=== PATIENT | male | born 1965 | race Caucasian/White ===

== ENCOUNTER → 2018-07-20 | Outpatient (CLI) | payer SELFPAY ==
[~2018-07-20] MED LIST: DIAZ5TAB4 PO; GLYB5TAB3 PO; HYDR-3622 PO; LEVO125T5 PO; METF500T17 PO; RANI150T23 PO
[2018-07-20 10:10] LABS: HCT (SEDRATE) 43.1 % (39.2-51.8)
[2018-07-20 10:11] LABS: BASOPHILS # (AUTO) 0.06 x10^3/uL (0-0.1); BASOPHILS % (AUTO) 1 % (0-1); EOSINOPHILS # (AUTO) 0.15 x10^3/uL (0-0.4); EOSINOPHILS % (AUTO) 3 % (1-7); LYMPHOCYTES # (AUTO) 1.78 x10^3/uL (1-3.4); LYMPHOCYTES % (AUTO) 33 % (22-44); MD NO; MEAN CORPUSCULAR HEMOGLOBIN 25.3 pg (27.5-34.5); MEAN CORPUSCULAR HGB CONC 33.5 g/dL (33.2-36.2); MEAN CORPUSCULAR VOLUME 75.6 fL (81-97); MEAN PLATELET VOLUME 6.9 fL (7.4-10.4); MONOCYTES # (AUTO) 0.68 x10^3/uL (0.2-0.8); MONOCYTES % (AUTO) 13 % (2-9); NEUTROPHILS # (AUTO) 2.79 x10^3/uL (1.8-6.8); NEUTROPHILS % (AUTO) 51 % (42-75); PLATELET COUNT 253 x10^3/uL (130-400); RED BLOOD COUNT 5.63 x10^6/uL (4.38-5.82); RED CELL DISTRIBUTION WIDTH 16.1 % (9.4-14.8)
[2018-07-20 10:13] LABS: MICROSCOPIC AUTO
[2018-07-20 10:19] LABS: INTERNATIONAL NORMALIZED RATIO 1.06 (0.93-1.1); PROTHROMBIN TIME 10.9 Seconds (9.6-11.5)
[2018-07-20 10:21] LABS: ALANINE AMINOTRANSFERASE 21 U/L (12-78); ALBUMIN 3.7 g/dL (3.4-5.0); ANION GAP 8 mmol/L (5-15); CALCIUM 9.1 mg/dL (8.5-10.1); CHLORIDE 101 mmol/L (98-107); CREATININE 0.78 mg/dL (0.7-1.3)
[2018-07-20 10:23] LABS: ALKALINE PHOSPHATASE 155 U/L (45-117); BILIRUBIN,TOTAL 0.4 mg/dL (0.2-1.0); TOTAL PROTEIN 8.3 g/dL (6.4-8.2)
== END | disposition home or self-care (01) ==
LOC: STAR 09:03
PROVIDERS: ATTEND Orthopaedic Surgery Orthopaedic Surgery of the Spine
DX: Z01.818 Encounter for other preprocedural examination (principal); M48.56XA Collapsed vertebra, not elsewhere classified, lumbar region, initial encounter for fracture
CPT/HCPCS: 36415; 71046; 80053; 81001; 85025; 85610; 85651; 85730; 93005

== ENCOUNTER 2018-08-19 09:31 | Day surgery (SDC) | payer MEDICAID ==
[~2018-08-19 09:31] MED LIST changes: +BUPIVACAINE/PF-EPI 0.5% 1:200K ONE
[2018-08-19] MEDS ORDERED: LACTATED RINGERS 1,000 ML IV SCH (09:54)
[2018-08-19] MEDS ORDERED: PLEASE ENTER HEIGHT AND WEIGHT MC SCH (10:00)
== END 2018-08-19 10:30 | disposition home or self-care (01) ==
LOC: OUT 09:31
PROVIDERS: ATTEND Orthopaedic Surgery Orthopaedic Surgery of the Spine
DX: Z02.9 Encounter for administrative examinations, unspecified (principal)

== ENCOUNTER 2018-08-26 08:06 | Day surgery (SDC) | payer MEDICAID ==
[~2018-08-26] VITALS: Ht 182.9 cm; Wt 119.0 kg
[~2018-08-26 08:06] MED LIST changes: -BUPIVACAINE/PF-EPI 0.5% 1:200K ONE
[2018-08-26] MEDS ORDERED: PROMETHAZINE 25 MG/ML, 1ML IV PRN (08:30)
[2018-08-26] MEDS ORDERED: HALOPERIDOL 5 MG/ML IV PRN (08:30)
[2018-08-26] MEDS ORDERED: hydrALAzine 20 MG/ML, 1ML IV PRN (08:30)
[2018-08-26] MEDS ORDERED: FENTANYL PF 100 MCG/2ML IV PRN (08:30)
[2018-08-26] MEDS ORDERED: PLEASE ENTER ALLERGIES MC SCH (08:30)
[2018-08-26] MEDS ORDERED: LABETALOL 5MG/ML, 20ML IV PRN (08:30)
[2018-08-26] MEDS ORDERED: MEPERIDINE/PF 25MG/0.5ML IVPush PRN (08:30)
[2018-08-26] MEDS ORDERED: DIPHENHYDRAMINE 50 MG/ML, 1ML IVPush PRN (08:30)
[2018-08-26] MEDS ORDERED: DIAZEPAM 5 MG/ML, 2ML IVPush PRN (08:30)
[2018-08-26] MEDS ORDERED: HYDROmorphone 2 MG/ML, 1ML IVPush PRN (08:30)
[2018-08-26] MEDS ORDERED: LACTATED RINGERS 1,000 ML IV SCH (08:36)
[2018-08-26 08:37] VITALS: BP 121/66
[2018-08-26] MEDS ORDERED: GABAPENTIN 300 MG CAPSULE PO ONE (09:00)
[2018-08-26] MEDS ORDERED: OXYcodone IR 5MG TABLET PO ONE (09:00)
[2018-08-26] MEDS ORDERED: ACETAMINOPHEN 500 MG TABLET PO ONE (09:00)
[2018-08-26] MEDS ORDERED: INSULIN SINGLE DOSE, ER SQ-INSULIN ONE (09:50)
[2018-08-26] MEDS ORDERED: INSULIN REGULAR 100 UNITS/ML, 3ML VIAL SQ-INSULIN SCH (10:00)
[2018-08-26] MEDS ORDERED: MIDAZOLAM 1 MG/ML, 2ML ONE (10:12)
[2018-08-26] MEDS ORDERED: FENTANYL PF 250 MCG/5ML ONE (10:13)
[2018-08-26] MEDS ORDERED: BUPIVACAINE/PF-EPI 0.5% 1:200K ONE (10:24)
[2018-08-26] MEDS ORDERED: SUCCINYLCHOLINE 20 MG/ML, 10ML ONE (11:08)
[2018-08-26] MEDS ORDERED: CEFAZOLIN 1,000 MG ONE (11:08)
[2018-08-26] MEDS ORDERED: ROCURONIUM 10MG/ML,5ML ONE (11:08)
[2018-08-26] MEDS ORDERED: NEOSTIGMINE 1 MG/ML, 10ML ONE (11:08)
[2018-08-26] MEDS ORDERED: PROPOFOL 10 MG/ML, 20ML ONE (11:08)
[2018-08-26] MEDS ORDERED: GLYCOPYRROLATE 0.2MG/1ML, 5ML ONE (11:08)
[2018-08-26] MEDS ORDERED: ONDANSETRON 2MG/ML, 2ML ONE (11:08)
[2018-08-26] MEDS ORDERED: DEXAMETHASONE 4 MG/ML, 1ML ONE (11:08)
== END 2018-08-26 16:10 | disposition home or self-care (01) ==
LOC: OUT 08:06
PROVIDERS: ATTEND Orthopaedic Surgery Orthopaedic Surgery of the Spine
DX: S32.018A Other fracture of first lumbar vertebra, initial encounter for closed fracture (principal); M54.5 Low back pain; E11.9 Type 2 diabetes mellitus without complications; E03.9 Hypothyroidism, unspecified; Z87.01 Personal history of pneumonia (recurrent); Z98.890 Other specified postprocedural states; Z79.84 Long term (current) use of oral hypoglycemic drugs; Z79.899 Other long term (current) drug therapy; Z79.4 Long term (current) use of insulin; V69.88XA Occupant (driver) (passenger) of heavy transport vehicle injured in other specified transport accidents, initial encounter; Y93.89 Activity, other specified; Y92.488 Other paved roadways as the place of occurrence of the external cause; Y99.8 Other external cause status
CPT/HCPCS: 22514; 72100; 82962; 88307; 88311; C1713; J0330; J0690; J1100; J2250; J2405; J2704; J2710; J3010; J3490; J7120

== ENCOUNTER 2018-09-27 09:43 | Inpatient (IN) | payer MEDICAID ==
[~2018-09-27] VITALS: Ht 182.9 cm; Wt 130.6 kg
--- NOTE | 2018-09-27 10:28 | NUR ---
PATIENT PRESENTS TO ED TODAY FOR INCREASED GENERALIZED WEAKNESS, LOW BACK PAIN, AND MULTIPLE FALLS, NO LOC/HEAD OR NECK PAIN, PATIENT HAD L-1 SPINAL SURGERY ON 08/26/18, A+OX4. PATIENT REPORTS BILAT LOWER EXT NUMBNESS. LEAD PRESSMAN ROTO GRAVURE PRINTING ON PATIENT. FAMILY AT BEDSIDE, IV ESTABLISHED, XRAY AND LABS COMPLETED, AWAITING RESULTS. PATIENT TO BE ADMIT PER ERP. CALL LIGHT WITHIN REACH.
[2018-09-27] MEDS ORDERED: SODIUM CHLORIDE FLUSH 10ML SYR IVF ONE (10:30)
[2018-09-27] MEDS ORDERED: GABA-827 PO (10:38)
[2018-09-27] MEDS ORDERED: FLUO20CA8 PO (10:40)
[2018-09-27] MEDS ORDERED: BACL20TA PO (10:41)
[2018-09-27 11:07] LABS: INTERNATIONAL NORMALIZED RATIO 1.1 (0.93-1.1); MEAN CORPUSCULAR HEMOGLOBIN 25.4 pg (27.5-34.5); MEAN CORPUSCULAR HGB CONC 33.4 g/dL (33.2-36.2); MEAN CORPUSCULAR VOLUME 76.1 fL (81-97); MEAN PLATELET VOLUME 7.1 fL (7.4-10.4); PLATELET COUNT 220 x10^3/uL (130-400); PROTHROMBIN TIME 11.6 Seconds (9.6-11.5); RED BLOOD COUNT 5.39 x10^6/uL (4.38-5.82); RED CELL DISTRIBUTION WIDTH 16.3 % (9.4-14.8)
[2018-09-27 11:09] LABS: ALBUMIN 3.5 g/dL (3.4-5.0); ANION GAP 5 mmol/L (5-15); CALCIUM 9.3 mg/dL (8.5-10.1); CHLORIDE 100 mmol/L (98-107)
[2018-09-27 11:13] LABS: ALANINE AMINOTRANSFERASE 14 U/L (12-78); ALKALINE PHOSPHATASE 137 U/L (45-117); BILIRUBIN,TOTAL 0.5 mg/dL (0.2-1.0); CREATININE 0.76 mg/dL (0.7-1.3); TOTAL PROTEIN 8.2 g/dL (6.4-8.2)
[2018-09-27 11:29] LABS: MD YES
[2018-09-27 11:31] LABS: ANISOCYTOSIS 1+; BASOS#(MANUAL) 0.06 x10^3/uL (0-0.1); BASOS% (MANUAL) 1 % (0-1); EOS#(MANUAL) 0.06 x10^3/uL (0.0-0.4); EOS% (MANUAL) 1 % (1-7); LYMPH#(MANUAL) 1.29 x10^3/uL (1-3.4); LYMPHS% (MANUAL) 23 % (22-44); MONOS#(MANUAL) 0.34 x10^3/uL (0.3-2.7); MONOS% (MANUAL) 6 % (2-9); SEG#(MANUAL) 3.86 x10^3/uL (1.8-6.8); SEGS% (MANUAL) 69 % (42-75)
[2018-09-27 11:32] LABS: <PLATELET ESTIMATE> ADEQUATE; <PLT MORPHOLOGY> NORMAL PLT MORPH
--- NOTE | 2018-09-27 11:41 | NUR ---
PATIENT SITTING COMFORTABLY ON GURNEY, WATCHING TV, VS UPDATED IN CHART. A+OX4. PATIENT'S RESULTS BACK, CHART UP FOR RECHECK, AWAITING ADMIT ORDER. PATIENT/FAMILY UPDATED ON POC. NO ADDITIONAL NEEDS AT THIS TIME.
[2018-09-27] MEDS ORDERED: ONDANSETRON ODT 4 MG PO PRN (13:30)
[2018-09-27] MEDS ORDERED: ACETAMINOPHEN 325 MG TABLET PO PRN (13:30)
[2018-09-27] MEDS ORDERED: HYDROcodone/APAP 10/325 MG TABLET PO PRN (13:30)
[2018-09-27] MEDS ORDERED: HYDROcodone/APAP 10/325 MG TABLET ONE (13:53)
[2018-09-27] MEDS: SODIUM CHLORIDE 0.9% 1,000 ML IV SCH ×2 (13:56→23:37)
--- NOTE | 2018-09-27 13:58 | NUR ---
VS UPDATED IN CHART, PATIENT HAVING 7/10 BACK PAIN, NORCO AND IVF ADMINISTERED PER MAR, UA COLLECTED AND SENT TO LAB. NO CONCENTRATED SWEETS DIET TRAY ORDERED PER MD ORDER PER PATIENT REQUEST. PATIENT TO MRI AT THIS TIME VIA [facility].
[2018-09-27 14:02] LABS: HEMOGLOBIN A1C 11.8 % (4.2-6.3)
[2018-09-27 14:15] LABS: CHLORIDE,URINE RANDOM 52 mmol/L; POTASSIUM,URINE RANDOM 30 mmol/L; SODIUM,URINE RANDOM 45 mmol/L
[2018-09-27 14:26] LABS: CULTURE INDICATED? NO; MICROSCOPIC NOT IND
[2018-09-27] MEDS ORDERED: GADOBUTROL 10 MMOL/10 ML PFS ONE (14:28)
[2018-09-27 14:34] LABS: OSMOLALITY,URINE 298 mOsm/kg (500-850)
[2018-09-27] MEDS ORDERED: DIPHENHYDRAMINE 50 MG/ML, 1ML ONE (14:48)
--- NOTE | 2018-09-27 14:55 | NUR ---
PER MRI, PATIENT HAVING HIVED POST IV CONTRAST, PATIENT MEDICATED WITH BENADRYL IN MRI. NADN, PATIENT IN CT AT THIS TIME.
--- NOTE | 2018-09-27 14:56 | NUR ---
ERP AWARE OF REACTION TO IV CONTRAST.
--- NOTE | 2018-09-27 14:57 | NUR ---
CALLED BY JUAN HAMMER TO EXAMINE PATIENT PRIOR TO CT SCAN WITH CONTRAST. PT WITH HIVES ON FACE AND NECK. NO DIFFICULTY BREATHING OR SPEAKING. DENIES ITCHING OR OTHER COMPLAINTS. CALLED MANAN BAIN, RECEIVED ORDERS FOR BENADRYL 25MG IV. MEDICATED ORDERED. CALLED ED AND INFORMED MIGUEL NETTLES THAT BENADRYL WAS GIVEN. PROCEEDED WITH CT PER JOSE CRUZ ORDER. PT BEING TRANSFERRED BACK TO CT. HIVES ON FACE AND NECK BEGINNING TO FADE. PT STATES HE FEELS GOOD.
[2018-09-27] MEDS ORDERED: DIPHENHYDRAMINE 50 MG/ML, 1ML IVPush ONE (15:00)
--- NOTE | 2018-09-27 15:10 | NUR ---
PATIENT BACK FROM CT, VS UPDATED IN CHART, PATIENT TRANSFERRED TO HOSPITAL BED, DIET TRAY PROVIDED. PATIENT SPEAKING FULL SENTENCES, NADN POST REACTION TO IV CONTRAST. PATIENT EATING LUNCH PROVIDED, SPOUSE AT BEDSIDE, NO ADDITIONAL NEEDS AT THIS TIME.
[2018-09-27] MEDS ORDERED: OMNIPAQUE 350 MG/ML, 100ML BOTTLE ONE (15:13)
[2018-09-27 15:58] LABS: ANION GAP 8 mmol/L (5-15); CHLORIDE 100 mmol/L (98-107); CREATININE 0.67 mg/dL (0.7-1.3)
--- NOTE | 2018-09-27 17:32 | NUR ---
REPORT TO MIGUEL LINARES.
[2018-09-27 18:09] VITALS: BP 131/71
[2018-09-27] MEDS: HYDROcodone/APAP 10/325 MG TABLET PO PRN (18:25)
[2018-09-27] MEDS: INSULIN LISPRO 100 UNITS/ML, PEN SQ-INSULIN SCH ×2 (18:25→21:44)
[2018-09-27 19:40] VITALS: BP 150/78
[2018-09-27] MEDS: GABAPENTIN 300 MG CAPSULE PO SCH (20:25)
[2018-09-27] MEDS: FAMOTIDINE 20 MG TABLET PO SCH (20:25)
[2018-09-27] MEDS: LIDODERM 5% PATCH TD PRN (21:43)
[2018-09-27] MEDS: INSULIN GLARGINE 100 UNITS/ML, PEN SQ-INSULIN SCH (21:44)
[2018-09-27] MEDS: KETOROLAC 30 MG/1 ML IVPush PRN (23:36)
[2018-09-28 04:00] VITALS: BP 108/71
[2018-09-28 05:19] LABS: BASOPHILS # (AUTO) 0.05 x10^3/uL (0-0.1); BASOPHILS % (AUTO) 1 % (0-1); EOSINOPHILS # (AUTO) 0.14 x10^3/uL (0-0.4); EOSINOPHILS % (AUTO) 3 % (1-7); LYMPHOCYTES # (AUTO) 1.56 x10^3/uL (1-3.4); LYMPHOCYTES % (AUTO) 33 % (22-44); MD NO; MEAN CORPUSCULAR HEMOGLOBIN 25.6 pg (27.5-34.5); MEAN CORPUSCULAR HGB CONC 33.4 g/dL (33.2-36.2); MEAN CORPUSCULAR VOLUME 76.8 fL (81-97); MEAN PLATELET VOLUME 6.9 fL (7.4-10.4); MONOCYTES # (AUTO) 0.66 x10^3/uL (0.2-0.8); MONOCYTES % (AUTO) 14 % (2-9); NEUTROPHILS # (AUTO) 2.33 x10^3/uL (1.8-6.8); NEUTROPHILS % (AUTO) 49 % (42-75); PLATELET COUNT 206 x10^3/uL (130-400); RED BLOOD COUNT 5.22 x10^6/uL (4.38-5.82)
[2018-09-28] MEDS: KETOROLAC 30 MG/1 ML IVPush PRN ×4 (05:25→23:28)
[2018-09-28] MEDS: HYDROcodone/APAP 10/325 MG TABLET PO PRN ×4 (05:25→23:28)
[2018-09-28 05:33] LABS: CHLORIDE 106 mmol/L (98-107)
[2018-09-28 05:43] LABS: ALANINE AMINOTRANSFERASE 13 U/L (12-78); ALBUMIN 3.2 g/dL (3.4-5.0); ALKALINE PHOSPHATASE 117 U/L (45-117); ANION GAP 6 mmol/L (5-15); BILIRUBIN,TOTAL 0.4 mg/dL (0.2-1.0); CALCIUM 8.8 mg/dL (8.5-10.1); CREATININE 0.67 mg/dL (0.7-1.3); TOTAL PROTEIN 7.3 g/dL (6.4-8.2)
[2018-09-28 06:35] VITALS: BP 121/62
[2018-09-28] MEDS: GABAPENTIN 300 MG CAPSULE PO SCH ×2 (08:02→21:17)
[2018-09-28] MEDS: INSULIN LISPRO 100 UNITS/ML, PEN SQ-INSULIN SCH ×4 (08:03→21:19)
[2018-09-28] MEDS ORDERED: LEVOTHYROXINE 125 MCG TABLET PO SCH (09:00)
[2018-09-28] MEDS: TEMPLATE NON-FORMULARY MED. (Fluoxetine Hcl** 20 MG) PO SCH (09:00)
[2018-09-28] MEDS ORDERED: DIPHENHYDRAMINE 50 MG/ML, 1ML IVPush ONE (10:00)
[2018-09-28] MEDS ORDERED: GADOBUTROL 10 MMOL/10 ML PFS ONE (12:49)
[2018-09-28 14:18] VITALS: BP 109/64
[2018-09-28] MEDS: SODIUM CHLORIDE 0.9% 1,000 ML IV SCH (14:32)
[2018-09-28] MEDS: INSULIN GLARGINE 100 UNITS/ML, PEN SQ-INSULIN SCH ×2 (21:00→21:18)
[2018-09-28 21:12] VITALS: BP 112/67
[2018-09-28] MEDS: FAMOTIDINE 20 MG TABLET PO SCH (21:17)
[2018-09-28] MEDS: LIDODERM 5% PATCH TD PRN (21:33)
[2018-09-29 01:51] VITALS: BP 115/56
[2018-09-29] MEDS: SODIUM CHLORIDE 0.9% 1,000 ML IV SCH (02:19)
[2018-09-29 05:57] LABS: BASOPHILS # (AUTO) 0.05 x10^3/uL (0-0.1); BASOPHILS % (AUTO) 1 % (0-1); EOSINOPHILS # (AUTO) 0.16 x10^3/uL (0-0.4); EOSINOPHILS % (AUTO) 4 % (1-7); LYMPHOCYTES # (AUTO) 1.67 x10^3/uL (1-3.4); LYMPHOCYTES % (AUTO) 39 % (22-44); MD NO; MEAN CORPUSCULAR HGB CONC 33.6 g/dL (33.2-36.2); MEAN CORPUSCULAR VOLUME 77.3 fL (81-97); MEAN PLATELET VOLUME 6.9 fL (7.4-10.4); MONOCYTES # (AUTO) 0.56 x10^3/uL (0.2-0.8); MONOCYTES % (AUTO) 13 % (2-9); NEUTROPHILS # (AUTO) 1.87 x10^3/uL (1.8-6.8); NEUTROPHILS % (AUTO) 43 % (42-75); PLATELET COUNT 197 x10^3/uL (130-400); RED BLOOD COUNT 4.79 x10^6/uL (4.38-5.82); RED CELL DISTRIBUTION WIDTH 16.2 % (9.4-14.8)
[2018-09-29] MEDS: HYDROcodone/APAP 10/325 MG TABLET PO PRN ×4 (06:23→22:16)
[2018-09-29] MEDS: LEVOTHYROXINE 150 MCG TABLET PO SCH (06:23)
[2018-09-29] MEDS: KETOROLAC 30 MG/1 ML IVPush PRN ×3 (06:23→18:22)
[2018-09-29 06:41] LABS: CHLORIDE 108 mmol/L (98-107)
[2018-09-29 07:27] LABS: ALANINE AMINOTRANSFERASE 14 U/L (12-78); ALBUMIN 2.9 g/dL (3.4-5.0); ALKALINE PHOSPHATASE 119 U/L (45-117); ANION GAP 7 mmol/L (5-15); BILIRUBIN,TOTAL 0.6 mg/dL (0.2-1.0); CALCIUM 8.3 mg/dL (8.5-10.1); CREATININE 0.73 mg/dL (0.7-1.3); TOTAL PROTEIN 6.8 g/dL (6.4-8.2)
[2018-09-29 07:28] VITALS: BP 130/74
[2018-09-29] MEDS: INSULIN LISPRO 100 UNITS/ML, PEN SQ-INSULIN SCH ×4 (08:00→21:43)
[2018-09-29] MEDS: GABAPENTIN 300 MG CAPSULE PO SCH ×2 (08:45→21:17)
[2018-09-29] MEDS: INSULIN GLARGINE 100 UNITS/ML, PEN SQ-INSULIN SCH ×2 (08:47→21:42)
[2018-09-29] MEDS: TEMPLATE NON-FORMULARY MED. (Fluoxetine Hcl** 20 MG) PO SCH (08:48)
[2018-09-29] MEDS ORDERED: INSULIN GLARGINE 100 UNITS/ML, PEN SQ-INSULIN SCH (11:00)
[2018-09-29 12:27] VITALS: BP 141/87
[2018-09-29 19:56] VITALS: BP 127/69
[2018-09-29] MEDS: FAMOTIDINE 20 MG TABLET PO SCH (21:17)
[2018-09-29] MEDS: LIDODERM 5% PATCH TD PRN (21:18)
[2018-09-29] MEDS ORDERED: DIPHENHYDRAMINE 50 MG CAPSULE ONE (23:13)
[2018-09-29] MEDS: DIPHENHYDRAMINE 50 MG CAPSULE PO PRN (23:16)
[2018-09-30] MEDS: SODIUM CHLORIDE 0.9% 1,000 ML IV SCH ×3 (00:45→22:00)
[2018-09-30 04:00] VITALS: BP 122/65
[2018-09-30 04:39] LABS: ANION GAP 7 mmol/L (5-15); CALCIUM 8.5 mg/dL (8.5-10.1); CHLORIDE 104 mmol/L (98-107); CREATININE 0.77 mg/dL (0.7-1.3)
[2018-09-30 04:49] LABS: PREALBUMIN 17.9 mg/dL (20.0-40.0)
[2018-09-30] MEDS: KETOROLAC 30 MG/1 ML IVPush PRN (07:10)
[2018-09-30] MEDS: HYDROcodone/APAP 10/325 MG TABLET PO PRN (07:10)
[2018-09-30] MEDS: GABAPENTIN 300 MG CAPSULE PO SCH (07:10)
[2018-09-30] MEDS: LEVOTHYROXINE 150 MCG TABLET PO SCH (07:11)
[2018-09-30 07:20] VITALS: BP 128/60
[2018-09-30] MEDS: INSULIN LISPRO 100 UNITS/ML, PEN SQ-INSULIN SCH ×4 (08:02→22:27)
[2018-09-30] MEDS: INSULIN GLARGINE 100 UNITS/ML, PEN SQ-INSULIN SCH ×2 (09:00→22:27)
[2018-09-30] MEDS: TEMPLATE NON-FORMULARY MED. (Fluoxetine Hcl** 20 MG) PO SCH (09:00)
[2018-09-30] MEDS ORDERED: INSULIN GLARGINE 100 UNITS/ML, PEN SQ-INSULIN ONE (09:30)
[2018-09-30 10:47] VITALS: BP 118/66
[2018-09-30] MEDS ORDERED: SUFentanil 50 MCG/ML, 1ML ONE (12:10)
[2018-09-30] MEDS ORDERED: MIDAZOLAM 1 MG/ML, 2ML ONE (12:10)
[2018-09-30] MEDS ORDERED: BACITRACIN 50,000 UNIT ONE (13:00)
[2018-09-30] MEDS ORDERED: THROMBIN 20,000 UNIT VIAL TP ONE (13:00)
[2018-09-30] MEDS ORDERED: BUPIVACAINE/PF-EPI 0.5% 1:200K ONE (13:00)
[2018-09-30] MEDS ORDERED: VANCOMYCIN 1,000 MG ONE (13:00)
[2018-09-30] MEDS ORDERED: TRANEXAMIC ACID 100 MG/ML, 10ML ONE ×2 (13:28)
[2018-09-30] MEDS ORDERED: DEXAMETHASONE 4 MG/ML, 1ML ONE ×2 (13:33→17:18)
[2018-09-30] MEDS ORDERED: PHENYLEPHRINE 10 MG/ML ONE (13:33)
[2018-09-30] MEDS ORDERED: LIDOCAINE 2% 100MG/5ML SYRINGE ONE (13:33)
[2018-09-30] MEDS ORDERED: VANCOMYCIN 1,000 MG IM ONE (14:45)
[2018-09-30] MEDS ORDERED: OXYcodone 5 MG/5 ML ORAL.SOL UDC PO PRN (15:30)
[2018-09-30] MEDS ORDERED: MIDAZOLAM 1 MG/ML, 2ML IV PRN (15:30)
[2018-09-30] MEDS ORDERED: ONDANSETRON 2MG/ML, 2ML IV PRN ×2 (15:30→21:30)
[2018-09-30] MEDS ORDERED: PROMETHAZINE 25 MG/ML, 1ML IV PRN (15:30)
[2018-09-30] MEDS ORDERED: METOPROLOL 1 MG/ML, 5ML IV PRN (15:30)
[2018-09-30] MEDS ORDERED: SCOPOLAMINE PATCH, 1.5MG PATCH.TD72 TD PRN (15:30)
[2018-09-30] MEDS ORDERED: ALBUTEROL/IPRATROPIUM 2.5MG/0.5MG, 3 ML NPPB PRN (15:30)
[2018-09-30] MEDS ORDERED: ACETAMINOPHEN 325 MG TABLET PO PRN (15:30)
[2018-09-30] MEDS ORDERED: DIAZEPAM 5 MG/ML, 2ML IVPush PRN (15:30)
[2018-09-30] MEDS ORDERED: hydrALAzine 20 MG/ML, 1ML IV PRN (15:30)
[2018-09-30] MEDS ORDERED: MEPERIDINE/PF 25MG/0.5ML IVPush PRN (15:30)
--- NOTE | 2018-09-30 15:47 | NUR ---
TEA LUA-Fall Risk Medications NOT present (patient has not received any fall risk meds, but diphenydramine and hydrocodone/acetaminophen are on this patient's profile) NOT receiving anticoagulants. Signed: 09/30/18 at 1549 by Sybil BRITO
[2018-09-30] MEDS ORDERED: ONDANSETRON 2MG/ML, 2ML ONE (17:18)
[2018-09-30] MEDS ORDERED: ROCURONIUM 10MG/ML,5ML ONE (17:18)
[2018-09-30] MEDS ORDERED: PROPOFOL 10 MG/ML, 20ML ONE (17:18)
[2018-09-30] MEDS ORDERED: CEFAZOLIN 1,000 MG ONE (17:18)
[2018-09-30] MEDS ORDERED: FENTANYL PF 100 MCG/2ML ONE (17:53)
[2018-09-30] MEDS ORDERED: HYDROmorphone 2 MG/ML, 1ML ONE ×2 (17:53→19:36)
[2018-09-30] MEDS: FENTANYL PF 100 MCG/2ML IV PRN ×2 (17:55→18:03)
[2018-09-30] MEDS: HYDROmorphone 2 MG/ML, 1ML IVPush PRN ×6 (17:58→19:40)
[2018-09-30] MEDS ORDERED: KETOROLAC 30 MG/1 ML ONE (18:51)
[2018-09-30] MEDS ORDERED: KETOROLAC 30 MG/1 ML IVPush ONE (19:00)
[2018-09-30] MEDS ORDERED: MEPERIDINE/PF 25MG/ML,1ML ONE (19:25)
[2018-09-30 20:45] VITALS: BP 124/74
[2018-09-30] MEDS ORDERED: ZOLPIDEM 5MG TABLET PO PRN (21:00)
[2018-09-30] MEDS: SODIUM CHLORIDE FLUSH 10ML SYR IVF SCH (21:00)
[2018-09-30] MEDS ORDERED: PHARMACY MAY ADJ FOR RENAL FX MC PRN (21:00)
[2018-09-30] MEDS ORDERED: MAGNESIUM HYDROXIDE 8%, 30ML UDC PO PRN (21:30)
[2018-09-30] MEDS ORDERED: BISACODYL 10 MG SUPP PR PRN (21:30)
[2018-09-30] MEDS ORDERED: DIAZEPAM 5 MG TABLET PO PRN (21:30)
[2018-09-30] MEDS ORDERED: ACETAMINOPHEN 500 MG TABLET PO PRN (21:30)
[2018-09-30] MEDS ORDERED: DIAZEPAM 5 MG/ML, 2ML IV PRN (21:30)
[2018-09-30] MEDS ORDERED: DEXAMETHASONE 4 MG/ML, 1ML IV PRN (21:30)
[2018-09-30] MEDS ORDERED: DIPHENHYDRAMINE 50 MG/ML, 1ML IVPush PRN (21:30)
[2018-09-30] MEDS ORDERED: OXYcodone IR 5MG TABLET PO PRN ×2 (21:30)
[2018-09-30] MEDS ORDERED: DIPHENHYDRAMINE 50 MG/ML, 1ML IM PRN (21:30)
[2018-09-30] MEDS ORDERED: DIPHENHYDRAMINE 50 MG CAPSULE PO PRN (21:30)
[2018-09-30] MEDS ORDERED: LORazepam 1MG TABLET PO PRN (21:30)
[2018-09-30] MEDS ORDERED: OXYcodone/APAP 5/325MG TABLET PO PRN (22:00)
[2018-09-30] MEDS ORDERED: morphine SULFATE 10 MG/ML, 1ML IV PRN (22:00)
[2018-09-30] MEDS: CEFAZOLIN PMX 1GM/50ML 50 ML IVPB SCH (22:26)
[2018-10-01 00:05] VITALS: BP 106/67
[2018-10-01] MEDS: NS + 20MEQ KCL 1,000 ML IV SCH ×3 (01:12→21:42)
[2018-10-01] MEDS: KETOROLAC 30 MG/1 ML IM SCH ×2 (03:00→11:00)
[2018-10-01] MEDS: KETOROLAC 30 MG/1 ML IVPush SCH ×3 (03:07→19:22)
[2018-10-01 04:05] VITALS: BP 97/60
[2018-10-01] MEDS: LEVOTHYROXINE 125 MCG TABLET PO SCH (05:36)
[2018-10-01] MEDS: CEFAZOLIN PMX 1GM/50ML 50 ML IVPB SCH (05:36)
[2018-10-01 05:37] LABS: ALBUMIN 2.9 g/dL (3.4-5.0); ANION GAP 8 mmol/L (5-15); CALCIUM 8.2 mg/dL (8.5-10.1); CHLORIDE 104 mmol/L (98-107)
[2018-10-01 05:40] LABS: ALANINE AMINOTRANSFERASE 13 U/L (12-78); ALKALINE PHOSPHATASE 110 U/L (45-117); BILIRUBIN,TOTAL 0.3 mg/dL (0.2-1.0); CREATININE 0.71 mg/dL (0.7-1.3); TOTAL PROTEIN 6.6 g/dL (6.4-8.2)
[2018-10-01 05:50] LABS: BASOPHILS % (AUTO) 0 % (0-1); EOSINOPHILS # (AUTO) 0.17 x10^3/uL (0-0.4); EOSINOPHILS % (AUTO) 2 % (1-7); LYMPHOCYTES # (AUTO) 0.67 x10^3/uL (1-3.4); LYMPHOCYTES % (AUTO) 9 % (22-44); MD NO; MEAN CORPUSCULAR HGB CONC 33.7 g/dL (33.2-36.2); MEAN CORPUSCULAR VOLUME 77.2 fL (81-97); MONOCYTES # (AUTO) 0.65 x10^3/uL (0.2-0.8); MONOCYTES % (AUTO) 9 % (2-9); NEUTROPHILS # (AUTO) 6.04 x10^3/uL (1.8-6.8); NEUTROPHILS % (AUTO) 80 % (42-75); PLATELET COUNT 197 x10^3/uL (130-400); RED BLOOD COUNT 4.37 x10^6/uL (4.38-5.82); RED CELL DISTRIBUTION WIDTH 16.3 % (9.4-14.8)
[2018-10-01 07:10] VITALS: BP 105/65
[2018-10-01] MEDS: INSULIN LISPRO 100 UNITS/ML, PEN SQ-INSULIN SCH ×4 (07:59→20:58)
[2018-10-01] MEDS: metFORMIN 500 MG TABLET PO SCH ×2 (08:00→16:38)
[2018-10-01] MEDS: INSULIN GLARGINE 100 UNITS/ML, PEN SQ-INSULIN SCH ×2 (09:34→20:57)
[2018-10-01] MEDS: GABAPENTIN 300 MG CAPSULE PO SCH ×2 (09:35→20:53)
[2018-10-01] MEDS: SENNA/DOCUSATE TABLET PO SCH (09:35)
[2018-10-01] MEDS: GlyBURIDE 5 MG TABLET PO SCH ×3 (09:35→20:53)
[2018-10-01] MEDS: BACLOFEN 10 MG TABLET PO SCH (09:35)
[2018-10-01] MEDS: SODIUM CHLORIDE FLUSH 10ML SYR IVF SCH ×2 (09:35→20:53)
[2018-10-01] MEDS: FLUOXETINE HCL 20 MG CAPSULE PO SCH (09:36)
[2018-10-01] MEDS: SODIUM CHLORIDE 0.9% 1,000 ML IV SCH (12:00)
[2018-10-01 15:02] VITALS: BP 129/72
[2018-10-01 20:15] VITALS: BP 114/64
[2018-10-01] MEDS: FAMOTIDINE 20 MG TABLET PO SCH (20:53)
[2018-10-02 01:03] VITALS: BP 143/77
[2018-10-02] MEDS: KETOROLAC 30 MG/1 ML IVPush SCH ×3 (03:00→22:10)
[2018-10-02 05:06] LABS: BASOPHILS # (AUTO) 0.03 x10^3/uL (0-0.1); BASOPHILS % (AUTO) 0 % (0-1); EOSINOPHILS # (AUTO) 0.05 x10^3/uL (0-0.4); EOSINOPHILS % (AUTO) 1 % (1-7); LYMPHOCYTES # (AUTO) 1.41 x10^3/uL (1-3.4); LYMPHOCYTES % (AUTO) 16 % (22-44); MD NO; MEAN CORPUSCULAR VOLUME 76.6 fL (81-97); MEAN PLATELET VOLUME 7.1 fL (7.4-10.4); MONOCYTES # (AUTO) 1.11 x10^3/uL (0.2-0.8); MONOCYTES % (AUTO) 13 % (2-9); NEUTROPHILS # (AUTO) 5.96 x10^3/uL (1.8-6.8); NEUTROPHILS % (AUTO) 70 % (42-75); PLATELET COUNT 191 x10^3/uL (130-400); RED BLOOD COUNT 3.91 x10^6/uL (4.38-5.82); RED CELL DISTRIBUTION WIDTH 16.4 % (9.4-14.8)
[2018-10-02 05:17] LABS: ANION GAP 7 mmol/L (5-15); CALCIUM 7.8 mg/dL (8.5-10.1); CHLORIDE 100 mmol/L (98-107); CREATININE 0.64 mg/dL (0.7-1.3)
[2018-10-02] MEDS: LEVOTHYROXINE 125 MCG TABLET PO SCH (05:50)
[2018-10-02] MEDS: INSULIN LISPRO 100 UNITS/ML, PEN SQ-INSULIN SCH ×4 (07:13→20:46)
[2018-10-02] MEDS: NS + 20MEQ KCL 1,000 ML IV SCH ×2 (07:57→17:45)
[2018-10-02 08:07] VITALS: BP 121/68
[2018-10-02] MEDS: SODIUM CHLORIDE FLUSH 10ML SYR IVF SCH ×2 (10:12→22:10)
[2018-10-02] MEDS: FLUOXETINE HCL 20 MG CAPSULE PO SCH (10:13)
[2018-10-02] MEDS: metFORMIN 500 MG TABLET PO SCH ×2 (10:13→16:54)
[2018-10-02] MEDS: GABAPENTIN 300 MG CAPSULE PO SCH ×2 (10:13→21:00)
[2018-10-02] MEDS: GlyBURIDE 5 MG TABLET PO SCH ×3 (10:13→21:00)
[2018-10-02] MEDS: INSULIN GLARGINE 100 UNITS/ML, PEN SQ-INSULIN SCH ×2 (10:14→20:46)
[2018-10-02] MEDS: SENNA/DOCUSATE TABLET PO SCH (10:14)
[2018-10-02] MEDS: BACLOFEN 10 MG TABLET PO SCH (10:14)
[2018-10-02] MEDS ORDERED: POTASSIUM CHLORIDE 20 MEQ TAB.ER.PRT PO ONE (11:00)
[2018-10-02] MEDS ORDERED: POTASSIUM CHLORIDE 20 MEQ TAB.ER.PRT ONE (11:30)
[2018-10-02] MEDS ORDERED: POTASSIUM CHLORIDE 20 MEQ in SODIUM CHLORIDE 0.9% 250 ML IV ONE (12:00)
[2018-10-02 14:09] VITALS: BP 104/74
[2018-10-02] MEDS: PROMETHAZINE 25 MG/ML, 1ML IM PRN ×2 (17:09→21:42)
[2018-10-02 19:40] VITALS: BP 150/89
[2018-10-02] MEDS: FAMOTIDINE 20 MG TABLET PO SCH (21:00)
[2018-10-02] MEDS: DIPHENHYDRAMINE 50 MG CAPSULE PO PRN (22:10)
[2018-10-03 02:31] VITALS: BP 138/67
[2018-10-03] MEDS: ONDANSETRON 2MG/ML, 2ML IVPush PRN ×5 (03:19→23:17)
[2018-10-03] MEDS: NS + 20MEQ KCL 1,000 ML IV SCH ×2 (03:19→16:15)
[2018-10-03] MEDS: PROMETHAZINE 25 MG/ML, 1ML IM PRN ×3 (03:56→21:22)
[2018-10-03] MEDS: LEVOTHYROXINE 125 MCG TABLET PO SCH (04:59)
[2018-10-03 05:15] LABS: MEAN CORPUSCULAR HEMOGLOBIN 25.9 pg (27.5-34.5); MEAN CORPUSCULAR HGB CONC 33.5 g/dL (33.2-36.2); MEAN CORPUSCULAR VOLUME 77.3 fL (81-97); MEAN PLATELET VOLUME 7.1 fL (7.4-10.4); PLATELET COUNT 190 x10^3/uL (130-400); RED CELL DISTRIBUTION WIDTH 16.4 % (9.4-14.8)
[2018-10-03 05:22] LABS: ANION GAP 7 mmol/L (5-15); CALCIUM 7.9 mg/dL (8.5-10.1); CHLORIDE 104 mmol/L (98-107); CREATININE 0.52 mg/dL (0.7-1.3)
[2018-10-03 05:51] LABS: BASOPHILS # (AUTO) 0.01 x10^3/uL (0-0.1); BASOPHILS % (AUTO) 0 % (0-1); EOSINOPHILS # (AUTO) 0.05 x10^3/uL (0-0.4); EOSINOPHILS % (AUTO) 1 % (1-7); LYMPHOCYTES # (AUTO) 0.58 x10^3/uL (1-3.4); LYMPHOCYTES % (AUTO) 8 % (22-44); MD SCAN; MONOCYTES # (AUTO) 0.95 x10^3/uL (0.2-0.8); MONOCYTES % (AUTO) 13 % (2-9); NEUTROPHILS # (AUTO) 5.73 x10^3/uL (1.8-6.8); NEUTROPHILS % (AUTO) 78 % (42-75)
[2018-10-03 06:13] VITALS: BP 111/69
[2018-10-03 07:05] VITALS: BP 113/69
[2018-10-03] MEDS: INSULIN LISPRO 100 UNITS/ML, PEN SQ-INSULIN SCH ×4 (07:41→21:00)
[2018-10-03] MEDS: metFORMIN 500 MG TABLET PO SCH ×2 (08:00→17:00)
[2018-10-03 08:51] LABS: % IRON SATURATION 10 % (20-55); IRON LEVEL 20 mcg/dL (65-175); TOTAL IRON BINDING CAPACITY 194 mcg/dL (250-450)
[2018-10-03] MEDS: SENNA/DOCUSATE TABLET PO SCH (09:00)
[2018-10-03] MEDS: BACLOFEN 10 MG TABLET PO SCH (09:00)
[2018-10-03] MEDS: GlyBURIDE 5 MG TABLET PO SCH ×3 (09:00→19:28)
[2018-10-03] MEDS: INSULIN GLARGINE 100 UNITS/ML, PEN SQ-INSULIN SCH ×2 (09:00→21:00)
[2018-10-03] MEDS: GABAPENTIN 300 MG CAPSULE PO SCH ×2 (09:00→19:28)
[2018-10-03] MEDS: FLUOXETINE HCL 20 MG CAPSULE PO SCH (09:00)
[2018-10-03] MEDS: SODIUM CHLORIDE FLUSH 10ML SYR IVF SCH ×2 (10:08→19:22)
[2018-10-03] MEDS: IRON SUCROSE COMPLEX 100MG/5ML IV SCH (10:08)
[2018-10-03] MEDS ORDERED: KETOROLAC 30 MG/1 ML ONE (10:41)
[2018-10-03] MEDS: KETOROLAC 30 MG/1 ML IVPush SCH ×3 (10:51→23:17)
[2018-10-03 12:32] VITALS: BP 111/73
[2018-10-03] MEDS: FAMOTIDINE 20 MG TABLET PO SCH (19:28)
[2018-10-03 19:35] VITALS: BP 117/74
[2018-10-04] MEDS: FAMOTIDINE 20 MG TABLET PO SCH ×3 (00:07→19:45)
[2018-10-04] MEDS: NS + 20MEQ KCL 1,000 ML IV SCH (00:59)
[2018-10-04 01:29] VITALS: BP 133/77
[2018-10-04] MEDS: ONDANSETRON 2MG/ML, 2ML IVPush PRN ×2 (04:05→08:40)
[2018-10-04] MEDS: KETOROLAC 30 MG/1 ML IVPush SCH ×4 (05:08→23:00)
[2018-10-04] MEDS: LEVOTHYROXINE 125 MCG TABLET PO SCH (05:08)
[2018-10-04] MEDS: INSULIN LISPRO 100 UNITS/ML, PEN SQ-INSULIN SCH ×4 (07:00→19:58)
[2018-10-04 07:32] VITALS: BP 148/72
[2018-10-04] MEDS: metFORMIN 500 MG TABLET PO SCH ×2 (08:00→16:40)
[2018-10-04] MEDS: GlyBURIDE 5 MG TABLET PO SCH ×3 (09:00→19:45)
[2018-10-04] MEDS: GABAPENTIN 300 MG CAPSULE PO SCH ×2 (09:00→19:45)
[2018-10-04] MEDS: FLUOXETINE HCL 20 MG CAPSULE PO SCH (09:00)
[2018-10-04] MEDS: SENNA/DOCUSATE TABLET PO SCH (09:00)
[2018-10-04] MEDS: BACLOFEN 10 MG TABLET PO SCH (09:00)
[2018-10-04] MEDS: INSULIN GLARGINE 100 UNITS/ML, PEN SQ-INSULIN SCH ×2 (09:00→19:58)
[2018-10-04] MEDS: IRON SUCROSE COMPLEX 100MG/5ML IV SCH (10:52)
[2018-10-04] MEDS: SODIUM CHLORIDE FLUSH 10ML SYR IVF SCH ×2 (10:53→19:45)
[2018-10-04] MEDS ORDERED: MAALOX/HYOSCYAMINE/LIDOCAINE 45 ML BTL PO ONE (11:00)
[2018-10-04] MEDS: FENTANYL REMOVE PATCH NOTE XX SCH (12:30)
[2018-10-04] MEDS ORDERED: morphine SULFATE 10 MG/ML, 1ML IV PRN (12:30)
[2018-10-04 13:02] VITALS: BP 125/82
[2018-10-04] MEDS: FENTANYL 12 MCG PATCH TD SCH (14:36)
[2018-10-04 20:00] VITALS: BP 141/66
[2018-10-05 01:14] VITALS: BP 116/74
[2018-10-05] MEDS: KETOROLAC 30 MG/1 ML IVPush SCH ×4 (03:01→19:50)
[2018-10-05] MEDS: LEVOTHYROXINE 125 MCG TABLET PO SCH (05:58)
[2018-10-05] MEDS: INSULIN LISPRO 100 UNITS/ML, PEN SQ-INSULIN SCH ×4 (07:00→20:30)
[2018-10-05] MEDS: metFORMIN 500 MG TABLET PO SCH ×2 (07:39→15:52)
[2018-10-05] MEDS: BACLOFEN 10 MG TABLET PO SCH (07:40)
[2018-10-05] MEDS: FLUOXETINE HCL 20 MG CAPSULE PO SCH (07:41)
[2018-10-05 08:00] VITALS: BP 106/63
[2018-10-05] MEDS: IRON SUCROSE COMPLEX 100MG/5ML IV SCH (08:08)
[2018-10-05] MEDS: GlyBURIDE 5 MG TABLET PO SCH ×3 (08:09→19:50)
[2018-10-05] MEDS: SENNA/DOCUSATE TABLET PO SCH (08:09)
[2018-10-05] MEDS: GABAPENTIN 300 MG CAPSULE PO SCH ×2 (08:09→20:30)
[2018-10-05] MEDS: INSULIN GLARGINE 100 UNITS/ML, PEN SQ-INSULIN SCH ×2 (08:10→20:30)
[2018-10-05] MEDS: FAMOTIDINE 20 MG TABLET PO SCH ×2 (08:10→19:51)
[2018-10-05] MEDS: SODIUM CHLORIDE FLUSH 10ML SYR IVF SCH ×2 (08:11→20:30)
[2018-10-05 12:00] VITALS: BP 145/72
[2018-10-05] MEDS: DIPHENHYDRAMINE 50 MG CAPSULE PO PRN (19:50)
[2018-10-05 20:18] VITALS: BP 148/81
[2018-10-05 23:58] VITALS: BP 119/76
[2018-10-06] MEDS: KETOROLAC 30 MG/1 ML IVPush SCH ×3 (05:30→18:36)
[2018-10-06] MEDS: LEVOTHYROXINE 125 MCG TABLET PO SCH (05:47)
[2018-10-06] MEDS: INSULIN LISPRO 100 UNITS/ML, PEN SQ-INSULIN SCH ×4 (07:00→19:52)
[2018-10-06 08:00] VITALS: BP 121/77
[2018-10-06] MEDS: metFORMIN 500 MG TABLET PO SCH ×2 (08:00→16:49)
[2018-10-06] MEDS: GABAPENTIN 300 MG CAPSULE PO SCH ×2 (08:54→19:51)
[2018-10-06] MEDS: FLUOXETINE HCL 20 MG CAPSULE PO SCH (08:54)
[2018-10-06] MEDS: SENNA/DOCUSATE TABLET PO SCH (08:54)
[2018-10-06] MEDS: GlyBURIDE 5 MG TABLET PO SCH ×3 (08:54→19:51)
[2018-10-06] MEDS: BACLOFEN 10 MG TABLET PO SCH (08:54)
[2018-10-06] MEDS: IRON SUCROSE COMPLEX 100MG/5ML IV SCH (09:05)
[2018-10-06] MEDS: SODIUM CHLORIDE FLUSH 10ML SYR IVF SCH ×2 (09:06→19:51)
[2018-10-06] MEDS: INSULIN GLARGINE 100 UNITS/ML, PEN SQ-INSULIN SCH ×2 (09:07→19:52)
[2018-10-06] MEDS: OXYcodone/APAP 5/325MG TABLET PO PRN ×2 (09:28→16:49)
[2018-10-06] MEDS: FAMOTIDINE 20 MG TABLET PO SCH ×2 (09:28→19:38)
[2018-10-06 12:14] VITALS: BP 147/82
[2018-10-06 18:44] VITALS: BP 144/63
[2018-10-06] MEDS: ONDANSETRON 2MG/ML, 2ML IVPush PRN (19:38)
[2018-10-07 01:08] VITALS: BP 135/86
[2018-10-07] MEDS: KETOROLAC 30 MG/1 ML IVPush SCH ×4 (01:13→20:18)
[2018-10-07] MEDS: LEVOTHYROXINE 125 MCG TABLET PO SCH (04:55)
[2018-10-07] MEDS: OXYcodone/APAP 5/325MG TABLET PO PRN ×3 (04:55→17:21)
[2018-10-07 05:25] LABS: BASOPHILS # (AUTO) 0.02 x10^3/uL (0-0.1); BASOPHILS % (AUTO) 0 % (0-1); EOSINOPHILS # (AUTO) 0.16 x10^3/uL (0-0.4); EOSINOPHILS % (AUTO) 3 % (1-7); LYMPHOCYTES # (AUTO) 1.14 x10^3/uL (1-3.4); LYMPHOCYTES % (AUTO) 19 % (22-44); MD NO; MEAN CORPUSCULAR HEMOGLOBIN 25.7 pg (27.5-34.5); MEAN CORPUSCULAR HGB CONC 32.9 g/dL (33.2-36.2); MEAN PLATELET VOLUME 6.2 fL (7.4-10.4); MONOCYTES # (AUTO) 0.86 x10^3/uL (0.2-0.8); MONOCYTES % (AUTO) 14 % (2-9); NEUTROPHILS # (AUTO) 3.87 x10^3/uL (1.8-6.8); NEUTROPHILS % (AUTO) 64 % (42-75); PLATELET COUNT 320 x10^3/uL (130-400); RED BLOOD COUNT 4.33 x10^6/uL (4.38-5.82); RED CELL DISTRIBUTION WIDTH 16.5 % (9.4-14.8)
[2018-10-07 05:32] LABS: CALCIUM 8.1 mg/dL (8.5-10.1); CHLORIDE 106 mmol/L (98-107)
[2018-10-07 05:36] LABS: ANION GAP 7 mmol/L (5-15); CREATININE 0.71 mg/dL (0.7-1.3)
[2018-10-07] MEDS: INSULIN LISPRO 100 UNITS/ML, PEN SQ-INSULIN SCH ×4 (07:00→20:15)
[2018-10-07] MEDS: IRON SUCROSE COMPLEX 100MG/5ML IV SCH (07:59)
[2018-10-07] MEDS: FAMOTIDINE 20 MG TABLET PO SCH ×2 (07:59→20:14)
[2018-10-07 08:00] VITALS: BP 143/78
[2018-10-07] MEDS: metFORMIN 500 MG TABLET PO SCH ×2 (08:00→17:00)
[2018-10-07] MEDS: BACLOFEN 10 MG TABLET PO SCH (08:07)
[2018-10-07] MEDS: GlyBURIDE 5 MG TABLET PO SCH ×3 (08:07→20:14)
[2018-10-07] MEDS: SODIUM CHLORIDE FLUSH 10ML SYR IVF SCH ×2 (08:07→20:18)
[2018-10-07] MEDS: GABAPENTIN 300 MG CAPSULE PO SCH ×2 (08:07→20:14)
[2018-10-07] MEDS: SENNA/DOCUSATE TABLET PO SCH (08:08)
[2018-10-07] MEDS: FLUOXETINE HCL 20 MG CAPSULE PO SCH (08:08)
[2018-10-07] MEDS: INSULIN GLARGINE 100 UNITS/ML, PEN SQ-INSULIN SCH ×2 (09:22→20:15)
[2018-10-07] MEDS: FENTANYL REMOVE PATCH NOTE XX SCH (11:51)
[2018-10-07] MEDS: FENTANYL 12 MCG PATCH TD SCH (11:51)
[2018-10-07 14:00] VITALS: BP 108/70
[2018-10-07 19:45] VITALS: BP 130/68
[2018-10-07] MEDS: DIPHENHYDRAMINE 50 MG CAPSULE PO PRN (20:18)
[2018-10-08 00:31] VITALS: BP 126/61
[2018-10-08] MEDS: FAMOTIDINE 20 MG TABLET PO SCH ×2 (00:58→20:27)
[2018-10-08] MEDS: KETOROLAC 30 MG/1 ML IVPush SCH ×2 (01:36→07:42)
[2018-10-08] MEDS: LEVOTHYROXINE 125 MCG TABLET PO SCH (05:24)
[2018-10-08 07:00] VITALS: BP 116/69
[2018-10-08] MEDS: INSULIN LISPRO 100 UNITS/ML, PEN SQ-INSULIN SCH ×4 (07:00→20:46)
[2018-10-08] MEDS: metFORMIN 500 MG TABLET PO SCH ×2 (07:52→16:41)
[2018-10-08] MEDS: SENNA/DOCUSATE TABLET PO SCH (09:00)
[2018-10-08] MEDS: GlyBURIDE 5 MG TABLET PO SCH ×3 (09:00→20:28)
[2018-10-08] MEDS: FLUOXETINE HCL 20 MG CAPSULE PO SCH (09:00)
[2018-10-08] MEDS: GABAPENTIN 300 MG CAPSULE PO SCH ×2 (09:00→20:28)
[2018-10-08] MEDS: BACLOFEN 10 MG TABLET PO SCH (09:00)
[2018-10-08] MEDS: INSULIN GLARGINE 100 UNITS/ML, PEN SQ-INSULIN SCH ×2 (09:00→20:28)
[2018-10-08] MEDS: SODIUM CHLORIDE FLUSH 10ML SYR IVF SCH ×2 (10:01→20:23)
[2018-10-08] MEDS: IRON SUCROSE COMPLEX 100MG/5ML IV SCH (10:01)
[2018-10-08 14:00] VITALS: BP 116/69
[2018-10-08] MEDS: OXYcodone/APAP 5/325MG TABLET PO PRN ×2 (16:37→17:18)
[2018-10-08 18:28] VITALS: BP 134/70
[2018-10-09 01:11] VITALS: BP 110/72
[2018-10-09] MEDS: OXYcodone/APAP 5/325MG TABLET PO PRN ×4 (03:31→21:33)
[2018-10-09] MEDS: LEVOTHYROXINE 125 MCG TABLET PO SCH (04:40)
[2018-10-09] MEDS: INSULIN LISPRO 100 UNITS/ML, PEN SQ-INSULIN SCH ×4 (07:00→21:34)
[2018-10-09 07:34] VITALS: BP 96/61
[2018-10-09] MEDS: metFORMIN 500 MG TABLET PO SCH ×2 (08:00→16:59)
[2018-10-09] MEDS: BACLOFEN 10 MG TABLET PO SCH (08:19)
[2018-10-09] MEDS: GABAPENTIN 300 MG CAPSULE PO SCH ×2 (08:19→21:00)
[2018-10-09] MEDS: GlyBURIDE 5 MG TABLET PO SCH ×3 (08:19→21:00)
[2018-10-09] MEDS: FLUOXETINE HCL 20 MG CAPSULE PO SCH (08:19)
[2018-10-09] MEDS: SENNA/DOCUSATE TABLET PO SCH (08:19)
[2018-10-09] MEDS: FAMOTIDINE 20 MG TABLET PO SCH ×2 (08:34→21:00)
[2018-10-09] MEDS: IRON SUCROSE COMPLEX 100MG/5ML IV SCH (08:34)
[2018-10-09] MEDS: SODIUM CHLORIDE FLUSH 10ML SYR IVF SCH ×2 (08:34→21:36)
[2018-10-09] MEDS: INSULIN GLARGINE 100 UNITS/ML, PEN SQ-INSULIN SCH ×2 (08:44→21:34)
[2018-10-09 13:20] VITALS: BP 111/67
[2018-10-09 18:34] VITALS: BP 137/91
[2018-10-10 00:55] VITALS: BP 89/53
[2018-10-10] MEDS: LEVOTHYROXINE 125 MCG TABLET PO SCH (06:40)
[2018-10-10 06:57] VITALS: BP 114/78
[2018-10-10] MEDS: INSULIN LISPRO 100 UNITS/ML, PEN SQ-INSULIN SCH ×2 (07:00→12:27)
[2018-10-10] MEDS: metFORMIN 500 MG TABLET PO SCH (08:00)
[2018-10-10] MEDS: IRON SUCROSE COMPLEX 100MG/5ML IV SCH (08:22)
[2018-10-10] MEDS: SENNA/DOCUSATE TABLET PO SCH (08:23)
[2018-10-10] MEDS: SODIUM CHLORIDE FLUSH 10ML SYR IVF SCH (08:23)
[2018-10-10] MEDS: BACLOFEN 10 MG TABLET PO SCH (08:25)
[2018-10-10] MEDS: GlyBURIDE 5 MG TABLET PO SCH (08:25)
[2018-10-10] MEDS: FLUOXETINE HCL 20 MG CAPSULE PO SCH (08:26)
[2018-10-10] MEDS: GABAPENTIN 300 MG CAPSULE PO SCH (08:26)
[2018-10-10] MEDS: FAMOTIDINE 20 MG TABLET PO SCH (08:27)
[2018-10-10] MEDS: OXYcodone/APAP 5/325MG TABLET PO PRN (08:27)
[2018-10-10] MEDS: INSULIN GLARGINE 100 UNITS/ML, PEN SQ-INSULIN SCH (08:33)
[2018-10-10] MEDS ORDERED: FERR-51 PO (11:58)
[2018-10-10] MEDS ORDERED: INSU100I13 SQ-INSULIN (11:58)
[2018-10-10] MEDS ORDERED: PSYL0.527 PO (11:58)
[2018-10-10] MEDS ORDERED: INSU100I11 SQ-INSULIN (11:58)
[2018-10-10] MEDS: FENTANYL REMOVE PATCH NOTE XX SCH (12:30)
[2018-10-10] MEDS: FENTANYL 12 MCG PATCH TD SCH (12:31)
[2018-10-10 12:50] VITALS: BP 98/59
[2018-10-10] MEDS ORDERED: FERROUS SULFATE 325 MG TABLET PO SCH (17:00)
[2018-10-11] MEDS ORDERED: PSYLLIUM PACKET PO SCH (12:00)
== END 2018-10-10 14:24 | DRG 460 ==
LOC: ED 10:13 → UNDOADMOB 11:39 → INTOOBSV 11:39 → EDIP 11:39 → OBSVTOIN 13:05 → 4NOR 17:36 → 3NW 10-01 15:30
PROVIDERS: ADMIT Hospitalist; ATTEND Hospitalist
PROC: 0PB40ZX Excision of Thoracic Vertebra, Open Approach, Diagnostic (ICD-10-PCS; 2018-09-30)
PROC: 4A11X4G Monitoring of Peripheral Nervous Electrical Activity, Intraoperative, External Approach (ICD-10-PCS; 2018-09-30)
PROC: 0RG70K1 Fusion of 2 to 7 Thoracic Vertebral Joints with Nonautologous Tissue Substitute, Posterior Approach, Posterior Column, Open Approach (ICD-10-PCS; principal; 2018-09-30 15:15)
DX: M48.04 Spinal stenosis, thoracic region (principal); C64.9 Malignant neoplasm of unspecified kidney, except renal pelvis; E87.1 Hypo-osmolality and hyponatremia; K56.7 Ileus, unspecified; M48.56XA Collapsed vertebra, not elsewhere classified, lumbar region, initial encounter for fracture; D50.9 Iron deficiency anemia, unspecified; E03.9 Hypothyroidism, unspecified; E87.6 Hypokalemia; G89.29 Other chronic pain; R29.6 Repeated falls; Z79.84 Long term (current) use of oral hypoglycemic drugs; Z98.1 Arthrodesis status; E11.65 Type 2 diabetes mellitus with hyperglycemia; G83.10 Monoplegia of lower limb affecting unspecified side; G54.3 Thoracic root disorders, not elsewhere classified; D18.09 Hemangioma of other sites
CPT/HCPCS: 36415; 70553; 71045; 71260; 72072; 72157; 74018; 74177; 76536; 80048; 80053; 81003; 82040; 82105; 82378; 82436; 82962; 83036; 83540; 83550; 83735; 83935; 84100; 84133; 84134; 84300; 84439; 84443; 85025; 85610; 85730; 86301; 86850; 86900; 86923; 88304; 88311; 88331; 88333; 93005; 96374; 99285; A9585; C1713; G0103; G0378; J0690; J1100; J1170; J1756; J1885; J2175; J2250; J2270; J2405; J2550; J2704; J3010; J3360; J3370; J3480; Q0162; Q9967; C1760; C1762; C1763; C9362; J1200; J1815; J2370; J7030; J7050

== ENCOUNTER 2018-10-20 12:07 | Inpatient (IN) | payer MEDICAID ==
[~2018-10-20] VITALS: Ht 172.7 cm; Wt 124.6 kg
[~2018-10-20 12:07] MED LIST changes: +BACL20TA PO; +FERR-51 PO; +FLUO20CA8 PO; +GABA-827 PO; +INSU100I11 SQ-INSULIN; +INSU100I13 SQ-INSULIN; +PSYL0.527 PO
[2018-10-20 13:01] VITALS: BP 113/65
[2018-10-20] MEDS ORDERED: LACTATED RINGERS 1,000 ML IV SCH (13:08)
[2018-10-20] MEDS ORDERED: PIPE3.375 IVPB (13:34)
[2018-10-20] MEDS ORDERED: ACET325T14 PO (13:34)
[2018-10-20] MEDS ORDERED: OMEP-110 PO (13:34)
[2018-10-20] MEDS ORDERED: OXYC5TAB3 PO (13:34)
[2018-10-20] MEDS ORDERED: ENOX120S5 SQ (13:34)
[2018-10-20] MEDS ORDERED: CEFU250T66 PO (13:34)
[2018-10-20] MEDS ORDERED: [UNRECOGNIZED DRUG - CODE] PO (13:34)
[2018-10-20] MEDS ORDERED: BISA10SU2 PR (13:34)
[2018-10-20] MEDS ORDERED: LINE600T37 PO (13:34)
[2018-10-20] MEDS ORDERED: CEFA2PLA10 IVPB (13:34)
[2018-10-20] MEDS ORDERED: LIDO700A20 TD (13:34)
[2018-10-20] MEDS ORDERED: SENN8.6T98 PO (13:34)
[2018-10-20] MEDS ORDERED: ASCO500T5 PO (13:34)
[2018-10-20] MEDS ORDERED: CHOL2000 PO (13:34)
[2018-10-20] MEDS ORDERED: FENTANYL PF 250 MCG/5ML ONE (14:55)
[2018-10-20] MEDS ORDERED: MIDAZOLAM 1 MG/ML, 2ML ONE (14:55)
[2018-10-20] MEDS ORDERED: KETOROLAC 30 MG/1 ML ONE (15:03)
[2018-10-20] MEDS ORDERED: GLYCOPYRROLATE 0.2MG/1ML, 5ML ONE (15:03)
[2018-10-20] MEDS ORDERED: NEOSTIGMINE 1 MG/ML, 10ML ONE (15:03)
[2018-10-20] MEDS ORDERED: BUPIVACAINE/PF-EPI 0.5% 1:200K ONE (15:03)
[2018-10-20] MEDS ORDERED: SUCCINYLCHOLINE 20 MG/ML, 10ML ONE (15:03)
[2018-10-20] MEDS ORDERED: DEXAMETHASONE 4 MG/ML, 1ML ONE (15:03)
[2018-10-20] MEDS ORDERED: THROMBIN 5,000 UNIT VIAL TP ONE (15:04)
[2018-10-20] MEDS ORDERED: VANCOMYCIN 1,000 MG ONE (15:04)
[2018-10-20] MEDS ORDERED: BACITRACIN 50,000 UNIT ONE (15:04)
[2018-10-20] MEDS ORDERED: TRANEXAMIC ACID 100 MG/ML, 10ML ONE (15:04)
[2018-10-20] MEDS ORDERED: METOCLOPRAMIDE 5 MG/ML, 2ML ONE (15:17)
[2018-10-20] MEDS ORDERED: hydrALAzine 20 MG/ML, 1ML IV PRN (16:00)
[2018-10-20] MEDS ORDERED: ONDANSETRON 2MG/ML, 2ML IV PRN ×2 (16:00→19:30)
[2018-10-20] MEDS ORDERED: VANCOMYCIN 500 MG ONE (16:00)
[2018-10-20] MEDS ORDERED: DIAZEPAM 5 MG/ML, 2ML IVPush PRN (16:00)
[2018-10-20] MEDS ORDERED: LABETALOL 5MG/ML, 20ML IV PRN ×2 (16:00→19:30)
[2018-10-20] MEDS ORDERED: PROMETHAZINE 25 MG/ML, 1ML IV PRN (16:00)
[2018-10-20] MEDS ORDERED: LORazepam 2 MG/ML, 1ML IVPush PRN (16:00)
[2018-10-20] MEDS ORDERED: OXYcodone 5 MG/5 ML ORAL.SOL UDC PO PRN (16:00)
[2018-10-20] MEDS ORDERED: ONDANSETRON 2MG/ML, 2ML ONE (16:06)
[2018-10-20] MEDS ORDERED: ROCURONIUM 10MG/ML,5ML ONE (16:06)
[2018-10-20] MEDS ORDERED: PROPOFOL 10 MG/ML, 20ML ONE (16:06)
[2018-10-20] MEDS ORDERED: FENTANYL PF 100 MCG/2ML ONE (17:43)
[2018-10-20] MEDS ORDERED: OXYcodone 5 MG/5 ML ORAL.SOL UDC ONE (17:43)
[2018-10-20] MEDS: FENTANYL PF 100 MCG/2ML IV PRN ×2 (17:48→18:00)
[2018-10-20] MEDS ORDERED: HYDROmorphone 1 MG/ML, 1ML ONE (17:50)
[2018-10-20] MEDS: HYDROmorphone 2 MG/ML, 1ML IVPush PRN ×3 (17:53→18:10)
[2018-10-20 19:06] VITALS: BP 112/69
[2018-10-20] MEDS ORDERED: DIPHENHYDRAMINE 50 MG CAPSULE PO PRN (19:30)
[2018-10-20] MEDS ORDERED: DIPHENHYDRAMINE 50 MG/ML, 1ML IVPush PRN (19:30)
[2018-10-20] MEDS ORDERED: ACETAMINOPHEN 325 MG TABLET PO PRN (19:30)
[2018-10-20] MEDS ORDERED: DIAZEPAM 5 MG/ML, 2ML IV PRN (19:30)
[2018-10-20] MEDS ORDERED: PROMETHAZINE 25 MG/ML, 1ML IM PRN (19:30)
[2018-10-20] MEDS ORDERED: BISACODYL 10 MG SUPP PR PRN (19:30)
[2018-10-20] MEDS ORDERED: DIPHENHYDRAMINE 50 MG/ML, 1ML IM PRN (19:30)
[2018-10-20] MEDS ORDERED: ACETAMINOPHEN 650 MG SUPP PR PRN (19:30)
[2018-10-20] MEDS ORDERED: MAGNESIUM HYDROXIDE 8%, 30ML UDC PO PRN (19:30)
[2018-10-20] MEDS: DIAZEPAM 5 MG TABLET PO PRN (19:32)
[2018-10-20] MEDS: morphine SULFATE 10 MG/ML, 1ML IV PRN (19:32)
[2018-10-20] MEDS: NS + 20MEQ KCL 1,000 ML IV SCH (20:27)
[2018-10-20] MEDS: SIMETHICONE 80 MG CHEW TAB PO SCH (20:28)
[2018-10-20] MEDS: GABAPENTIN 300 MG CAPSULE PO SCH (20:28)
[2018-10-20] MEDS: ACETAMINOPHEN 325 MG TABLET PO SCH (20:28)
[2018-10-20] MEDS: LINEZOLID 600 MG TABLET PO SCH (20:29)
[2018-10-20] MEDS: BISACODYL 10 MG SUPP PR SCH (20:29)
[2018-10-20] MEDS: ZOLPIDEM 5MG TABLET PO PRN (20:30)
[2018-10-20] MEDS: PIPERACILLIN/TAZO/PMX 3.375GM 50 ML IV SCH (20:33)
[2018-10-20] MEDS: INSULIN LISPRO 100 UNITS/ML, PEN SQ-INSULIN SCH (21:00)
[2018-10-20] MEDS: INSULIN GLARGINE 100 UNITS/ML, PEN SQ-INSULIN SCH (21:00)
[2018-10-20] MEDS: INSULIN REGULAR 100 UNITS/ML, 3ML VIAL SQ-INSULIN SCH (21:00)
[2018-10-21] VITALS: BP 107/67
[2018-10-21] MEDS: CEFAZOLIN PMX 1GM/50ML 50 ML IVPB SCH ×4 (00:38→23:56)
[2018-10-21] MEDS: OXYcodone IR 5MG TABLET PO PRN ×4 (00:47→20:45)
[2018-10-21 02:30] VITALS: BP 105/60
[2018-10-21] MEDS: morphine SULFATE 10 MG/ML, 1ML IV PRN ×3 (02:47→17:44)
[2018-10-21] MEDS: DIAZEPAM 5 MG TABLET PO PRN (02:47)
[2018-10-21] MEDS: PIPERACILLIN/TAZO/PMX 3.375GM 50 ML IV SCH ×4 (04:04→20:49)
[2018-10-21] MEDS: LEVOTHYROXINE 125 MCG TABLET PO SCH (06:00)
[2018-10-21] MEDS ORDERED: LEVOTHYROXINE 25 MCG TABLET ONE (06:08)
[2018-10-21] MEDS ORDERED: LEVOTHYROXINE 100 MCG TABLET ONE (06:09)
[2018-10-21] MEDS: ENOXAPARIN 30 MG/0.3 ML SQ SCH ×2 (06:12→17:45)
[2018-10-21] MEDS: OMEPRAZOLE 20 MG CAPSULE.DR PO SCH (06:12)
[2018-10-21] MEDS: INSULIN LISPRO 100 UNITS/ML, PEN SQ-INSULIN SCH ×4 (06:14→20:44)
[2018-10-21] MEDS: INSULIN REGULAR 100 UNITS/ML, 3ML VIAL SQ-INSULIN SCH ×4 (06:14→20:44)
[2018-10-21 06:20] LABS: BASOPHILS # (AUTO) 0.03 x10^3/uL (0-0.1); BASOPHILS % (AUTO) 0 % (0-1); EOSINOPHILS % (AUTO) 6 % (1-7); LYMPHOCYTES % (AUTO) 28 % (22-44); MD SCAN; MEAN CORPUSCULAR HEMOGLOBIN 26.5 pg (27.5-34.5); MEAN CORPUSCULAR HGB CONC 33.2 g/dL (33.2-36.2); MEAN CORPUSCULAR VOLUME 79.8 fL (81-97); MEAN PLATELET VOLUME 6.5 fL (7.4-10.4); MONOCYTES # (AUTO) 0.97 x10^3/uL (0.2-0.8); MONOCYTES % (AUTO) 13 % (2-9); NEUTROPHILS # (AUTO) 3.82 x10^3/uL (1.8-6.8); NEUTROPHILS % (AUTO) 53 % (42-75); PLATELET COUNT 291 x10^3/uL (130-400); RED BLOOD COUNT 3.43 x10^6/uL (4.38-5.82); RED CELL DISTRIBUTION WIDTH 17.1 % (9.4-14.8)
[2018-10-21 06:32] VITALS: BP 109/66
[2018-10-21] MEDS: SENNOSIDES 8.6 MG TABLET PO SCH (09:00)
[2018-10-21] MEDS: NS + 20MEQ KCL 1,000 ML IV SCH ×2 (10:27→20:30)
[2018-10-21] MEDS: ACETAMINOPHEN 325 MG TABLET PO SCH ×3 (10:27→20:45)
[2018-10-21] MEDS: SENNA/DOCUSATE TABLET PO SCH (10:27)
[2018-10-21] MEDS: LINEZOLID 600 MG TABLET PO SCH ×2 (10:27→20:44)
[2018-10-21] MEDS: GABAPENTIN 300 MG CAPSULE PO SCH ×2 (10:27→20:45)
[2018-10-21] MEDS: INSULIN GLARGINE 100 UNITS/ML, PEN SQ-INSULIN SCH ×2 (10:28→20:50)
[2018-10-21] MEDS: CHOLECALCIFEROL 1,000 UNIT TABLET PO SCH (10:28)
[2018-10-21] MEDS: ASCORBIC ACID 500 MG TABLET PO SCH ×2 (10:28→17:45)
[2018-10-21 12:02] VITALS: BP 96/60
[2018-10-21 19:31] VITALS: BP 105/58
[2018-10-21] MEDS: SIMETHICONE 80 MG CHEW TAB PO SCH (20:44)
[2018-10-21] MEDS: ZOLPIDEM 5MG TABLET PO PRN (20:44)
[2018-10-21] MEDS: BISACODYL 10 MG SUPP PR SCH (20:51)
[2018-10-22 01:01] VITALS: BP 99/64
[2018-10-22] MEDS: PIPERACILLIN/TAZO/PMX 3.375GM 50 ML IV SCH ×2 (03:05→09:13)
[2018-10-22] MEDS: OXYcodone IR 5MG TABLET PO PRN ×5 (04:42→19:42)
[2018-10-22] MEDS: OMEPRAZOLE 20 MG CAPSULE.DR PO SCH (06:12)
[2018-10-22] MEDS: LEVOTHYROXINE 125 MCG TABLET PO SCH (06:12)
[2018-10-22] MEDS: ENOXAPARIN 30 MG/0.3 ML SQ SCH ×2 (06:15→17:51)
[2018-10-22] MEDS: INSULIN LISPRO 100 UNITS/ML, PEN SQ-INSULIN SCH ×4 (06:20→20:49)
[2018-10-22] MEDS: INSULIN REGULAR 100 UNITS/ML, 3ML VIAL SQ-INSULIN SCH ×4 (06:35→20:56)
[2018-10-22 06:58] VITALS: BP 134/74
[2018-10-22] MEDS: CEFAZOLIN PMX 1GM/50ML 50 ML IVPB SCH (07:52)
[2018-10-22] MEDS: SENNOSIDES 8.6 MG TABLET PO SCH (09:00)
[2018-10-22] MEDS: NS + 20MEQ KCL 1,000 ML IV SCH ×2 (09:00→20:56)
[2018-10-22] MEDS: GABAPENTIN 300 MG CAPSULE PO SCH ×2 (09:01→20:38)
[2018-10-22] MEDS: ASCORBIC ACID 500 MG TABLET PO SCH ×2 (09:02→17:51)
[2018-10-22] MEDS: CHOLECALCIFEROL 1,000 UNIT TABLET PO SCH (09:02)
[2018-10-22] MEDS: ACETAMINOPHEN 325 MG TABLET PO SCH ×3 (09:02→20:38)
[2018-10-22] MEDS: SENNA/DOCUSATE TABLET PO SCH (09:02)
[2018-10-22] MEDS: LINEZOLID 600 MG TABLET PO SCH ×2 (09:02→20:38)
[2018-10-22] MEDS: INSULIN GLARGINE 100 UNITS/ML, PEN SQ-INSULIN SCH ×2 (09:03→20:49)
[2018-10-22 09:35] LABS: BASOPHILS # (AUTO) 0.02 x10^3/uL (0-0.1); BASOPHILS % (AUTO) 0 % (0-1); EOSINOPHILS # (AUTO) 0.41 x10^3/uL (0-0.4); EOSINOPHILS % (AUTO) 8 % (1-7); LYMPHOCYTES # (AUTO) 1.52 x10^3/uL (1-3.4); LYMPHOCYTES % (AUTO) 28 % (22-44); MD NO; MEAN CORPUSCULAR HEMOGLOBIN 25.6 pg (27.5-34.5); MEAN CORPUSCULAR HGB CONC 32.6 g/dL (33.2-36.2); MEAN CORPUSCULAR VOLUME 78.7 fL (81-97); MEAN PLATELET VOLUME 6.2 fL (7.4-10.4); MONOCYTES # (AUTO) 0.69 x10^3/uL (0.2-0.8); MONOCYTES % (AUTO) 13 % (2-9); NEUTROPHILS # (AUTO) 2.73 x10^3/uL (1.8-6.8); NEUTROPHILS % (AUTO) 51 % (42-75); PLATELET COUNT 346 x10^3/uL (130-400); RED BLOOD COUNT 4.08 x10^6/uL (4.38-5.82); RED CELL DISTRIBUTION WIDTH 16.5 % (9.4-14.8)
[2018-10-22] MEDS: CEFUROXIME 1.5 GM in SODIUM CHLORIDE 0.9% 100 ML IV SCH ×2 (14:00→22:19)
[2018-10-22 14:59] VITALS: BP 131/77
[2018-10-22 18:39] VITALS: BP 104/53
[2018-10-22] MEDS: SIMETHICONE 80 MG CHEW TAB PO SCH (20:38)
[2018-10-22] MEDS: morphine SULFATE 10 MG/ML, 1ML IV PRN (20:48)
[2018-10-22] MEDS: BISACODYL 10 MG SUPP PR SCH (20:56)
[2018-10-22] MEDS: ZOLPIDEM 5MG TABLET PO PRN (22:56)
[2018-10-23 00:57] VITALS: BP 102/58
[2018-10-23] MEDS: OXYcodone IR 5MG TABLET PO PRN ×4 (05:10→20:32)
[2018-10-23] MEDS: OMEPRAZOLE 20 MG CAPSULE.DR PO SCH (06:04)
[2018-10-23] MEDS: LEVOTHYROXINE 125 MCG TABLET PO SCH (06:04)
[2018-10-23] MEDS: CEFUROXIME 1.5 GM in SODIUM CHLORIDE 0.9% 100 ML IV SCH (06:04)
[2018-10-23] MEDS: ENOXAPARIN 30 MG/0.3 ML SQ SCH ×2 (06:04→18:03)
[2018-10-23] MEDS: INSULIN LISPRO 100 UNITS/ML, PEN SQ-INSULIN SCH ×4 (06:26→20:30)
[2018-10-23] MEDS: INSULIN REGULAR 100 UNITS/ML, 3ML VIAL SQ-INSULIN SCH ×3 (06:26→16:00)
[2018-10-23 06:33] LABS: BASOPHILS # (AUTO) 0.11 x10^3/uL (0-0.1); BASOPHILS % (AUTO) 2 % (0-1); EOSINOPHILS # (AUTO) 0.31 x10^3/uL (0-0.4); EOSINOPHILS % (AUTO) 6 % (1-7); LYMPHOCYTES # (AUTO) 1.73 x10^3/uL (1-3.4); LYMPHOCYTES % (AUTO) 35 % (22-44); MD NO; MEAN CORPUSCULAR HEMOGLOBIN 26.1 pg (27.5-34.5); MEAN CORPUSCULAR HGB CONC 33.2 g/dL (33.2-36.2); MEAN CORPUSCULAR VOLUME 78.7 fL (81-97); MEAN PLATELET VOLUME 5.8 fL (7.4-10.4); MONOCYTES # (AUTO) 0.76 x10^3/uL (0.2-0.8); MONOCYTES % (AUTO) 15 % (2-9); NEUTROPHILS # (AUTO) 2.08 x10^3/uL (1.8-6.8); NEUTROPHILS % (AUTO) 42 % (42-75); PLATELET COUNT 341 x10^3/uL (130-400); RED BLOOD COUNT 3.74 x10^6/uL (4.38-5.82)
[2018-10-23 06:44] LABS: CREATININE 0.55 mg/dL (0.7-1.3)
[2018-10-23] MEDS: CHOLECALCIFEROL 1,000 UNIT TABLET PO SCH (08:35)
[2018-10-23] MEDS: ACETAMINOPHEN 325 MG TABLET PO SCH ×3 (08:36→20:28)
[2018-10-23] MEDS: SENNA/DOCUSATE TABLET PO SCH (08:37)
[2018-10-23] MEDS: LINEZOLID 600 MG TABLET PO SCH (08:37)
[2018-10-23] MEDS: GABAPENTIN 300 MG CAPSULE PO SCH ×2 (08:38→20:28)
[2018-10-23] MEDS: ASCORBIC ACID 500 MG TABLET PO SCH ×2 (08:38→18:02)
[2018-10-23] MEDS: INSULIN GLARGINE 100 UNITS/ML, PEN SQ-INSULIN SCH ×2 (08:40→20:30)
[2018-10-23 08:45] VITALS: BP 113/60
[2018-10-23] MEDS: SENNOSIDES 8.6 MG TABLET PO SCH (09:00)
[2018-10-23] MEDS: NS + 20MEQ KCL 1,000 ML IV SCH (10:00)
[2018-10-23 14:45] VITALS: BP 110/64
[2018-10-23] MEDS: CEFUROXIME 1.5 GM in SODIUM CHLORIDE 0.9% 50 ML IV SCH ×2 (14:53→22:37)
[2018-10-23] MEDS: morphine SULFATE 10 MG/ML, 1ML IV PRN (18:02)
[2018-10-23] MEDS: SIMETHICONE 80 MG CHEW TAB PO SCH (20:27)
[2018-10-23] MEDS: BISACODYL 10 MG SUPP PR SCH (20:28)
[2018-10-23 20:34] VITALS: BP 115/70
[2018-10-24 02:38] VITALS: BP 118/70
[2018-10-24] MEDS: OXYcodone IR 5MG TABLET PO PRN ×5 (02:45→20:52)
[2018-10-24] MEDS: OMEPRAZOLE 20 MG CAPSULE.DR PO SCH (05:07)
[2018-10-24] MEDS: LEVOTHYROXINE 125 MCG TABLET PO SCH (05:07)
[2018-10-24] MEDS: ENOXAPARIN 30 MG/0.3 ML SQ SCH ×2 (05:07→17:09)
[2018-10-24 05:20] LABS: BASOPHILS # (AUTO) 0.03 x10^3/uL (0-0.1); BASOPHILS % (AUTO) 1 % (0-1); EOSINOPHILS # (AUTO) 0.19 x10^3/uL (0-0.4); EOSINOPHILS % (AUTO) 4 % (1-7); LYMPHOCYTES # (AUTO) 1.93 x10^3/uL (1-3.4); LYMPHOCYTES % (AUTO) 37 % (22-44); MD NO; MEAN CORPUSCULAR HEMOGLOBIN 26.6 pg (27.5-34.5); MEAN CORPUSCULAR HGB CONC 33.5 g/dL (33.2-36.2); MEAN CORPUSCULAR VOLUME 79.3 fL (81-97); MONOCYTES # (AUTO) 0.76 x10^3/uL (0.2-0.8); MONOCYTES % (AUTO) 14 % (2-9); NEUTROPHILS # (AUTO) 2.37 x10^3/uL (1.8-6.8); NEUTROPHILS % (AUTO) 45 % (42-75); PLATELET COUNT 318 x10^3/uL (130-400); RED CELL DISTRIBUTION WIDTH 16.7 % (9.4-14.8)
[2018-10-24 05:21] LABS: HCT (SEDRATE) 26.9 % (39.2-51.8)
[2018-10-24 05:31] LABS: ALANINE AMINOTRANSFERASE 12 U/L (12-78); ANION GAP 3 mmol/L (5-15); CALCIUM 8.5 mg/dL (8.5-10.1); CHLORIDE 106 mmol/L (98-107); CREATININE 0.57 mg/dL (0.7-1.3)
[2018-10-24 05:41] LABS: ALKALINE PHOSPHATASE 121 U/L (45-117); BILIRUBIN,TOTAL 0.2 mg/dL (0.2-1.0); TOTAL PROTEIN 6.1 g/dL (6.4-8.2)
[2018-10-24] MEDS: INSULIN LISPRO 100 UNITS/ML, PEN SQ-INSULIN SCH ×4 (06:34→21:05)
[2018-10-24] MEDS: CEFUROXIME 1.5 GM in SODIUM CHLORIDE 0.9% 50 ML IV SCH ×3 (06:34→21:49)
[2018-10-24 07:15] VITALS: BP 115/69
[2018-10-24] MEDS: CHOLECALCIFEROL 1,000 UNIT TABLET PO SCH (08:22)
[2018-10-24] MEDS: GABAPENTIN 300 MG CAPSULE PO SCH ×2 (08:22→20:53)
[2018-10-24] MEDS: SENNA/DOCUSATE TABLET PO SCH (08:22)
[2018-10-24] MEDS: SENNOSIDES 8.6 MG TABLET PO SCH (08:23)
[2018-10-24] MEDS: ACETAMINOPHEN 325 MG TABLET PO SCH ×3 (08:23→20:52)
[2018-10-24] MEDS: ASCORBIC ACID 500 MG TABLET PO SCH ×2 (08:23→17:09)
[2018-10-24] MEDS: INSULIN GLARGINE 100 UNITS/ML, PEN SQ-INSULIN SCH ×2 (08:24→21:05)
[2018-10-24] MEDS ORDERED: [UNRECOGNIZED DRUG - CODE] IV (13:57)
[2018-10-24 14:26] VITALS: BP 120/70
[2018-10-24] MEDS: SIMETHICONE 80 MG CHEW TAB PO SCH (20:53)
[2018-10-24] MEDS: BISACODYL 10 MG SUPP PR SCH (20:53)
[2018-10-24 20:56] VITALS: BP 104/63
[2018-10-24] MEDS: DIAZEPAM 5 MG TABLET PO PRN (23:57)
[2018-10-25] MEDS: OXYcodone IR 5MG TABLET PO PRN ×3 (01:10→10:41)
[2018-10-25 01:15] VITALS: BP 98/46
[2018-10-25] MEDS: INSULIN LISPRO 100 UNITS/ML, PEN SQ-INSULIN SCH ×2 (06:05→11:46)
[2018-10-25] MEDS: OMEPRAZOLE 20 MG CAPSULE.DR PO SCH (06:31)
[2018-10-25] MEDS: ENOXAPARIN 30 MG/0.3 ML SQ SCH (06:31)
[2018-10-25] MEDS: LEVOTHYROXINE 125 MCG TABLET PO SCH (06:31)
[2018-10-25 06:47] VITALS: BP 128/74
[2018-10-25 07:01] LABS: BASOPHILS # (AUTO) 0.04 x10^3/uL (0-0.1); BASOPHILS % (AUTO) 1 % (0-1); EOSINOPHILS # (AUTO) 0.13 x10^3/uL (0-0.4); EOSINOPHILS % (AUTO) 2 % (1-7); LYMPHOCYTES # (AUTO) 1.95 x10^3/uL (1-3.4); LYMPHOCYTES % (AUTO) 32 % (22-44); MD NO; MEAN CORPUSCULAR HEMOGLOBIN 26.6 pg (27.5-34.5); MEAN CORPUSCULAR HGB CONC 33.5 g/dL (33.2-36.2); MEAN CORPUSCULAR VOLUME 79.3 fL (81-97); MEAN PLATELET VOLUME 5.7 fL (7.4-10.4); MONOCYTES # (AUTO) 0.94 x10^3/uL (0.2-0.8); MONOCYTES % (AUTO) 15 % (2-9); NEUTROPHILS # (AUTO) 3.05 x10^3/uL (1.8-6.8); NEUTROPHILS % (AUTO) 50 % (42-75); PLATELET COUNT 317 x10^3/uL (130-400); RED BLOOD COUNT 3.61 x10^6/uL (4.38-5.82); RED CELL DISTRIBUTION WIDTH 17.5 % (9.4-14.8)
[2018-10-25] MEDS: CEFUROXIME 1.5 GM in SODIUM CHLORIDE 0.9% 50 ML IV SCH (07:01)
[2018-10-25] MEDS: INSULIN GLARGINE 100 UNITS/ML, PEN SQ-INSULIN SCH (08:43)
[2018-10-25] MEDS: CHOLECALCIFEROL 1,000 UNIT TABLET PO SCH (08:43)
[2018-10-25] MEDS: SENNOSIDES 8.6 MG TABLET PO SCH (08:44)
[2018-10-25] MEDS: SENNA/DOCUSATE TABLET PO SCH (08:44)
[2018-10-25] MEDS: ACETAMINOPHEN 325 MG TABLET PO SCH (08:44)
[2018-10-25] MEDS: GABAPENTIN 300 MG CAPSULE PO SCH (08:44)
[2018-10-25] MEDS: ASCORBIC ACID 500 MG TABLET PO SCH (08:44)
== END 2018-10-25 14:25 | DRG 856 ==
LOC: ORIP 12:07 → EDSTATUS 15:00 → 4NOR 18:54
PROVIDERS: ADMIT Orthopaedic Surgery Orthopaedic Surgery of the Spine; ATTEND Orthopaedic Surgery Orthopaedic Surgery of the Spine
PROC: 0JU Subcutaneous Tissue and Fascia, Supplement (ICD-10-PCS; 2018-10-20)
PROC: 0PB40ZZ Excision of Thoracic Vertebra, Open Approach (ICD-10-PCS; principal; 2018-10-20 15:00)
PROC: 02HV33Z Insertion of Infusion Device into Superior Vena Cava, Percutaneous Approach (ICD-10-PCS; 2018-10-22)
PROC: B5181ZA Fluoroscopy of Superior Vena Cava using Low Osmolar Contrast, Guidance (ICD-10-PCS; 2018-10-22)
PROC: B548ZZA Ultrasonography of Superior Vena Cava, Guidance (ICD-10-PCS; 2018-10-22)
DX: T81.42XA Infection following a procedure, deep incisional surgical site, initial encounter (principal); E43 Unspecified severe protein-calorie malnutrition; C79.51 Secondary malignant neoplasm of bone; M46.24 Osteomyelitis of vertebra, thoracic region; R78.81 Bacteremia; Z68.41 Body mass index [BMI] 40.0-44.9, adult; Y83.8 Other surgical procedures as the cause of abnormal reaction of the patient, or of later complication, without mention of misadventure at the time of the procedure; E03.9 Hypothyroidism, unspecified; E11.65 Type 2 diabetes mellitus with hyperglycemia; G83.9 Paralytic syndrome, unspecified; E11.69 Type 2 diabetes mellitus with other specified complication; E66.01 Morbid (severe) obesity due to excess calories; B95.61 Methicillin susceptible Staphylococcus aureus infection as the cause of diseases classified elsewhere; Z85.528 Personal history of other malignant neoplasm of kidney; Z86.718 Personal history of other venous thrombosis and embolism; Z87.891 Personal history of nicotine dependence; Y92.89 Other specified places as the place of occurrence of the external cause; Z98.1 Arthrodesis status; Z87.01 Personal history of pneumonia (recurrent); Z88.8 Allergy status to other drugs, medicaments and biological substances
CPT/HCPCS: 36415; J3490; 36573; 80053; 82565; 82962; 85025; 85651; 86140; 87040; 87070; 87075; 87077; 87186; 87205; G0378; J0690; J0697; J1100; J1170; J1650; J1885; J2250; J2405; J2543; J2704; J2710; J3010; J3370; J3480; C1751; J0330; J1815; J2270; J2765; J7120; Q4118

== ENCOUNTER 2018-12-19 09:54 | Outpatient (CLI) | payer MEDICAID ==
[~2018-12-19 09:54] MED LIST changes: +ACET325T14 PO; +ASCO500T5 PO; +BISA10SU2 PR; +CEFA2PLA10 IVPB; +CEFU250T66 PO; +CHOL2000 PO; +ENOX120S5 SQ; +LIDO700A20 TD; +LINE600T37 PO; +OMEP-110 PO; +OXYC5TAB3 PO; +PIPE3.375 IVPB; +SENN8.6T98 PO; +[UNRECOGNIZED DRUG - CODE] IV; +[UNRECOGNIZED DRUG - CODE] PO
== END 2018-12-19 23:59 | disposition home or self-care (01) ==
LOC: ROC 09:54
PROVIDERS: ATTEND Radiology Radiation Oncology
DX: Z08 Encounter for follow-up examination after completed treatment for malignant neoplasm (principal); C79.51 Secondary malignant neoplasm of bone
CPT/HCPCS: 99213; G0463

== ENCOUNTER → 2018-12-28 | Outpatient (CLI) | payer MEDICAID ==
[~2018-12-28] MED LIST changes: +OMNIPAQUE 350 MG/ML, 100ML BOTTLE ONE
== END | disposition home or self-care (01) ==
LOC: RAD 10:28
PROVIDERS: ATTEND Radiology Radiation Oncology
DX: R91.8 Other nonspecific abnormal finding of lung field (principal); N28.1 Cyst of kidney, acquired; C67.9 Malignant neoplasm of bladder, unspecified; C79.51 Secondary malignant neoplasm of bone
CPT/HCPCS: 71260; 74177; Q9967

== ENCOUNTER 2019-02-16 08:15 | Outpatient (CLI) | payer MEDICAID ==
[~2019-02-16 08:15] MED LIST changes: -OMNIPAQUE 350 MG/ML, 100ML BOTTLE ONE
== END 2019-02-16 23:59 | disposition home or self-care (01) ==
LOC: ROC 08:15
PROVIDERS: ATTEND Radiology Radiation Oncology
DX: C79.51 Secondary malignant neoplasm of bone (principal)
CPT/HCPCS: 99212; G0463

== ENCOUNTER 2019-03-24 08:14 | Outpatient (CLI) | payer MEDICAID | END 2019-03-24 23:59 | disposition home or self-care (01) | LOC: ROC 08:14 | PROVIDERS: ATTEND Radiology Radiation Oncology | DX: Z02.9 Encounter for administrative examinations, unspecified (principal) ==

== ENCOUNTER 2020-05-10 17:23 | Inpatient (IN) | payer BC, MEDICAID ==
[~2020-05-10] VITALS: Ht 175.3 cm; Wt 93.8 kg
[~2020-05-10 17:23] MED LIST changes: -ASCO500T5 PO; +ASCO500T56 PO; -BISA10SU2 PR; +BISA10SU4 PR; +FLUO20CA23 PO; -FLUO20CA8 PO; +LINE600T12 PO; -LINE600T37 PO; +RANI-467 PO; -RANI150T23 PO
[2020-05-10 21:02] VITALS: BP 107/68
[2020-05-10] MEDS ORDERED: GABA600T7 PO (21:29)
[2020-05-10] MEDS ORDERED: APIX5TAB PO (21:30)
[2020-05-10] MEDS ORDERED: UBIQ75CA PO (21:31)
[2020-05-10] MEDS ORDERED: CINN500C2 PO (21:32)
[2020-05-10] MEDS ORDERED: TURM500C4 PO (21:33)
[2020-05-10] MEDS ORDERED: FLUO20CA23 PO (21:34)
[2020-05-10] MEDS ORDERED: NALO4SPR NS (21:36)
[2020-05-10] MEDS ORDERED: TRAZ-96 PO (21:38)
[2020-05-10] MEDS ORDERED: IBUP-1221 PO (21:39)
[2020-05-10] MEDS ORDERED: FAMO10TA77 PO (21:40)
[2020-05-10] MEDS ORDERED: ACET325C6 PO (21:40)
[2020-05-10] MEDS ORDERED: MORP30TA81 PO (21:41)
[2020-05-10] MEDS ORDERED: OXYC5TAB3 PO (21:43)
[2020-05-10] MEDS ORDERED: [UNRECOGNIZED DRUG - OTHER] (21:44)
[2020-05-10] MEDS ORDERED: INSU100V8 SQ (21:46)
[2020-05-10] MEDS ORDERED: CABOMETYX (21:50)
[2020-05-10] MEDS ORDERED: TIZA4CAP PO (21:52)
[2020-05-10] MEDS ORDERED: MIDO5TAB4 PO (21:55)
[2020-05-10] MEDS ORDERED: LACT1TAB13 PO (21:55)
[2020-05-10] MEDS: GABAPENTIN 300 MG CAPSULE PO SCH (22:30)
[2020-05-10] MEDS ORDERED: TIZANIDINE 4MG TABLET PO PRN (22:30)
[2020-05-10] MEDS ORDERED: IBUPROFEN 400 MG PO SCH (22:30)
[2020-05-10] MEDS ORDERED: HEPARIN 5,000 UNITS/ML, 1ML SQ SCH (22:30)
[2020-05-10] MEDS ORDERED: INSULIN GLARGINE HUM REC ANLOG 100 UNIT SQ SCH (22:30)
[2020-05-10] MEDS ORDERED: POLYETHYLENE GLYCOL 17 GM PACKET PO PRN (22:30)
[2020-05-10] MEDS: ACETAMINOPHEN 500 MG TABLET PO SCH (22:30)
[2020-05-10] MEDS ORDERED: TRAZODONE 50MG TABLET PO PRN (22:30)
[2020-05-10] MEDS ORDERED: PLEASE ENTER HEIGHT AND WEIGHT MC SCH (22:30)
[2020-05-10] MEDS ORDERED: PAMIDRONATE 90 MG in SODIUM CHLORIDE 0.9% 500 ML IV ONE (23:00)
[2020-05-10] MEDS: CEFTRIAXONE PMX 1GM/50ML 50 ML IV SCH (23:16)
[2020-05-10] MEDS: SODIUM CHLORIDE 0.9% 1,000 ML IV SCH (23:16)
[2020-05-10] MEDS: OXYcodone IR 5MG TABLET PO PRN (23:53)
[2020-05-11] MEDS ORDERED: GADOTERATE 10 MMOL/20 ML SYR ONE (01:11)
[2020-05-11 01:46] VITALS: BP 100/65
[2020-05-11 04:44] LABS: BASOPHILS # (AUTO) 0.04 x10^3/uL (0-0.1); BASOPHILS % (AUTO) 1 % (0-1); EOSINOPHILS # (AUTO) 0.31 x10^3/uL (0-0.4); EOSINOPHILS % (AUTO) 6 % (1-7); LYMPHOCYTES # (AUTO) 0.66 x10^3/uL (1-3.4); LYMPHOCYTES % (AUTO) 12 % (22-44); MD NO; MEAN CORPUSCULAR HEMOGLOBIN 26.2 pg (27.5-34.5); MEAN CORPUSCULAR HGB CONC 33.1 g/dL (33.2-36.2); MEAN CORPUSCULAR VOLUME 78.9 fL (81-97); MEAN PLATELET VOLUME 6.4 fL (7.4-10.4); MONOCYTES # (AUTO) 0.87 x10^3/uL (0.2-0.8); MONOCYTES % (AUTO) 16 % (2-9); NEUTROPHILS # (AUTO) 3.71 x10^3/uL (1.8-6.8); NEUTROPHILS % (AUTO) 66 % (42-75); PLATELET COUNT 286 x10^3/uL (130-400); RED BLOOD COUNT 4.31 x10^6/uL (4.38-5.82); RED CELL DISTRIBUTION WIDTH 15.4 % (9.4-14.8)
[2020-05-11 04:57] LABS: ANION GAP 6 mmol/L (5-15); CALCIUM 12.7 mg/dL (8.5-10.1); CHLORIDE 102 mmol/L (98-107); CREATININE 0.59 mg/dL (0.7-1.3)
[2020-05-11 07:25] LABS: MICROSCOPIC INDICATED
[2020-05-11] MEDS: ONDANSETRON ODT 4 MG PO PRN (07:48)
[2020-05-11] MEDS: FLUOXETINE HCL 20 MG CAPSULE PO SCH (07:51)
[2020-05-11] MEDS: GABAPENTIN 300 MG CAPSULE PO SCH ×3 (07:51→21:00)
[2020-05-11] MEDS: ACETAMINOPHEN 500 MG TABLET PO SCH ×2 (07:52→12:04)
[2020-05-11] MEDS: SENNA/DOCUSATE TABLET PO SCH (08:00)
[2020-05-11] MEDS: MIDODRINE 5 MG TABLET PO SCH ×2 (08:01→21:00)
[2020-05-11] MEDS: BISACODYL 10 MG SUPP PR SCH (08:01)
[2020-05-11] MEDS: LACTOBACILLUS CHEW TABLET PO SCH (08:01)
[2020-05-11] MEDS: FAMOTIDINE 20 MG TABLET PO SCH ×2 (08:01→21:00)
[2020-05-11] MEDS: OXYcodone IR 5MG TABLET PO PRN (08:01)
[2020-05-11] MEDS: APIXABAN 5 MG TABLET PO SCH ×2 (08:03→20:59)
[2020-05-11 08:58] VITALS: BP 105/69
[2020-05-11] MEDS ORDERED: CINNAMON BARK 1200 MG PO SCH (09:00)
[2020-05-11] MEDS ORDERED: UBIQUINONE 100 MG PO SCH (09:00)
[2020-05-11 12:45] VITALS: BP 114/75
[2020-05-11] MEDS: IBUPROFEN 200 MG TABLET PO SCH ×2 (13:00→20:59)
[2020-05-11] MEDS ORDERED: MORP15TA PO (13:31)
[2020-05-11] MEDS: INSULIN REGULAR 100 UNITS/ML, 3ML VIAL SQ-INSULIN SCH ×2 (16:00→21:00)
[2020-05-11] MEDS: SODIUM CHLORIDE 0.9% 1,000 ML IV SCH (16:04)
[2020-05-11] MEDS: DEXAMETHASONE 4 MG TABLET PO SCH (17:46)
[2020-05-11] MEDS: morphine SULFATE 15 MG TAB.IR PO PRN (17:49)
[2020-05-11 18:14] VITALS: BP 137/76
[2020-05-11] MEDS: INSULIN GLARGINE 100 UNITS/ML, PEN SQ-INSULIN SCH (21:00)
[2020-05-11] MEDS: CEFTRIAXONE PMX 1GM/50ML 50 ML IV SCH (23:39)
[2020-05-12 01:18] VITALS: BP 144/82
[2020-05-12] MEDS: SODIUM CHLORIDE 0.9% 1,000 ML IV SCH ×2 (01:24→12:43)
[2020-05-12] MEDS: INSULIN REGULAR 100 UNITS/ML, 3ML VIAL SQ-INSULIN SCH ×4 (07:00→20:46)
[2020-05-12] MEDS: DEXAMETHASONE 4 MG TABLET PO SCH ×4 (08:00→17:00)
[2020-05-12 08:34] LABS: BASOPHILS # (AUTO) 0.01 x10^3/uL (0-0.1); BASOPHILS % (AUTO) 0 % (0-1); EOSINOPHILS % (AUTO) 0 % (1-7); LYMPHOCYTES # (AUTO) 0.39 x10^3/uL (1-3.4); LYMPHOCYTES % (AUTO) 8 % (22-44); MD NO; MEAN CORPUSCULAR HEMOGLOBIN 25.9 pg (27.5-34.5); MEAN CORPUSCULAR HGB CONC 32.9 g/dL (33.2-36.2); MEAN CORPUSCULAR VOLUME 78.8 fL (81-97); MEAN PLATELET VOLUME 5.8 fL (7.4-10.4); MONOCYTES # (AUTO) 0.49 x10^3/uL (0.2-0.8); MONOCYTES % (AUTO) 10 % (2-9); NEUTROPHILS % (AUTO) 83 % (42-75); PLATELET COUNT 322 x10^3/uL (130-400); RED BLOOD COUNT 4.34 x10^6/uL (4.38-5.82); RED CELL DISTRIBUTION WIDTH 15.2 % (9.4-14.8)
[2020-05-12 08:43] LABS: ALANINE AMINOTRANSFERASE 22 U/L (12-78); ALBUMIN 2.6 g/dL (3.4-5.0); ANION GAP 12 mmol/L (5-15); CALCIUM 11.2 mg/dL (8.5-10.1); CHLORIDE 100 mmol/L (98-107); CREATININE 0.55 mg/dL (0.7-1.3)
[2020-05-12 08:46] LABS: ALKALINE PHOSPHATASE 199 U/L (45-117); BILIRUBIN,TOTAL 0.4 mg/dL (0.2-1.0); TOTAL PROTEIN 7.8 g/dL (6.4-8.2)
[2020-05-12] MEDS: LACTOBACILLUS CHEW TABLET PO SCH ×2 (08:52→11:07)
[2020-05-12] MEDS: APIXABAN 5 MG TABLET PO SCH ×3 (08:52→21:41)
[2020-05-12] MEDS: GABAPENTIN 300 MG CAPSULE PO SCH ×5 (08:52→21:41)
[2020-05-12] MEDS: IBUPROFEN 200 MG TABLET PO SCH ×3 (08:52→21:00)
[2020-05-12] MEDS: BISACODYL 10 MG SUPP PR SCH (08:53)
[2020-05-12] MEDS: MIDODRINE 5 MG TABLET PO SCH ×3 (08:53→21:00)
[2020-05-12] MEDS: ACETAMINOPHEN 500 MG TABLET PO SCH ×3 (08:53→21:00)
[2020-05-12] MEDS: FLUOXETINE HCL 20 MG CAPSULE PO SCH ×2 (08:53→11:06)
[2020-05-12] MEDS: SENNA/DOCUSATE TABLET PO SCH (08:53)
[2020-05-12] MEDS: FAMOTIDINE 20 MG TABLET PO SCH ×3 (08:53→21:41)
[2020-05-12 08:59] VITALS: BP 128/78
[2020-05-12] MEDS: morphine SULFATE 15 MG TAB.IR PO PRN ×3 (11:13→19:36)
[2020-05-12] MEDS ORDERED: ONDANSETRON 2MG/ML, 2ML ONE (12:12)
[2020-05-12] MEDS: ONDANSETRON ODT 4 MG PO PRN ×2 (12:19→20:51)
[2020-05-12 12:32] VITALS: BP 119/77
[2020-05-12] MEDS ORDERED: morphine SULFATE 15 MG TAB.IR PO ONE (13:00)
[2020-05-12] MEDS ORDERED: PROCHLORPERAZINE 5 MG/ML, 2ML ONE (16:53)
[2020-05-12] MEDS: PROCHLORPERAZINE 5 MG/ML, 2ML IVPush PRN (17:02)
[2020-05-12 19:12] VITALS: BP 137/79
[2020-05-12] MEDS: INSULIN GLARGINE 100 UNITS/ML, PEN SQ-INSULIN SCH (21:41)
[2020-05-12] MEDS: CEFTRIAXONE PMX 1GM/50ML 50 ML IV SCH (23:06)
[2020-05-13 01:16] VITALS: BP 128/80
[2020-05-13] MEDS: morphine SULFATE 15 MG TAB.IR PO PRN ×3 (02:47→17:07)
[2020-05-13] MEDS: SODIUM CHLORIDE 0.9% 1,000 ML IV SCH ×2 (03:08→12:59)
[2020-05-13] MEDS: INSULIN REGULAR 100 UNITS/ML, 3ML VIAL SQ-INSULIN SCH ×4 (07:00→21:00)
[2020-05-13 07:28] VITALS: BP 122/70
[2020-05-13] MEDS: SENNA/DOCUSATE TABLET PO SCH (08:11)
[2020-05-13] MEDS: MIDODRINE 5 MG TABLET PO SCH ×2 (08:12→20:31)
[2020-05-13] MEDS: FAMOTIDINE 20 MG TABLET PO SCH ×2 (08:12→22:19)
[2020-05-13] MEDS: LACTOBACILLUS CHEW TABLET PO SCH (08:12)
[2020-05-13] MEDS: ONDANSETRON ODT 4 MG PO PRN (08:12)
[2020-05-13] MEDS: DEXAMETHASONE 4 MG TABLET PO SCH ×3 (08:12→17:07)
[2020-05-13] MEDS: APIXABAN 5 MG TABLET PO SCH ×2 (08:12→20:31)
[2020-05-13] MEDS: FLUOXETINE HCL 20 MG CAPSULE PO SCH (08:12)
[2020-05-13] MEDS: GABAPENTIN 300 MG CAPSULE PO SCH ×3 (08:12→20:30)
[2020-05-13] MEDS: BISACODYL 10 MG SUPP PR SCH (08:13)
[2020-05-13] MEDS: IBUPROFEN 200 MG TABLET PO SCH ×2 (08:13→20:30)
[2020-05-13] MEDS: ACETAMINOPHEN 500 MG TABLET PO SCH ×2 (08:13→20:31)
[2020-05-13] MEDS ORDERED: GADOTERATE 10 MMOL/20 ML SYR ONE (09:21)
[2020-05-13] MEDS: PROCHLORPERAZINE 5 MG/ML, 2ML IVPush PRN (10:56)
[2020-05-13 13:36] VITALS: BP 119/74
[2020-05-13 18:50] VITALS: BP 122/74
[2020-05-13] MEDS ORDERED: INSULIN GLARGINE 100 UNITS/ML, PEN SQ-INSULIN SCH (21:00)
[2020-05-13] MEDS: CEFTRIAXONE PMX 1GM/50ML 50 ML IV SCH (23:28)
[2020-05-14 02:19] VITALS: BP 158/87
[2020-05-14] MEDS: morphine SULFATE 15 MG TAB.IR PO PRN ×3 (02:27→13:32)
[2020-05-14] MEDS: SODIUM CHLORIDE 0.9% 1,000 ML IV SCH ×3 (02:28→20:53)
[2020-05-14] MEDS: INSULIN REGULAR 100 UNITS/ML, 3ML VIAL SQ-INSULIN SCH ×4 (07:00→20:42)
[2020-05-14] MEDS: GABAPENTIN 300 MG CAPSULE PO SCH ×3 (07:58→20:33)
[2020-05-14] MEDS: FLUOXETINE HCL 20 MG CAPSULE PO SCH (07:58)
[2020-05-14] MEDS: ACETAMINOPHEN 500 MG TABLET PO SCH ×2 (07:59→20:33)
[2020-05-14] MEDS: FAMOTIDINE 20 MG TABLET PO SCH ×2 (07:59→20:33)
[2020-05-14] MEDS: APIXABAN 5 MG TABLET PO SCH ×2 (07:59→20:32)
[2020-05-14] MEDS: LACTOBACILLUS CHEW TABLET PO SCH (07:59)
[2020-05-14] MEDS: IBUPROFEN 200 MG TABLET PO SCH (07:59)
[2020-05-14] MEDS: ONDANSETRON ODT 4 MG PO PRN (07:59)
[2020-05-14] MEDS: DEXAMETHASONE 4 MG TABLET PO SCH ×3 (08:00→17:28)
[2020-05-14] MEDS: MIDODRINE 5 MG TABLET PO SCH ×2 (08:01→20:33)
[2020-05-14] MEDS: SENNA/DOCUSATE TABLET PO SCH (08:02)
[2020-05-14] MEDS: POLYETHYLENE GLYCOL 17 GM PACKET PO SCH (08:02)
[2020-05-14] MEDS: SENNOSIDES 8.6 MG TABLET PO SCH (08:02)
[2020-05-14 08:22] VITALS: BP 129/75
[2020-05-14] MEDS: BISACODYL 10 MG SUPP PR SCH (09:00)
[2020-05-14 15:30] VITALS: BP 115/70
[2020-05-14 19:24] VITALS: BP 110/69
[2020-05-14] MEDS ORDERED: INSULIN GLARGINE 100 UNITS/ML, PEN SQ-INSULIN SCH (21:00)
[2020-05-14] MEDS: CEFTRIAXONE PMX 1GM/50ML 50 ML IV SCH (23:56)
[2020-05-15 00:22] VITALS: BP 149/88
[2020-05-15] MEDS: morphine SULFATE 15 MG TAB.IR PO PRN ×3 (01:42→12:56)
[2020-05-15] MEDS: SODIUM CHLORIDE 0.9% 1,000 ML IV SCH (06:12)
[2020-05-15 06:49] LABS: BASOPHILS # (AUTO) 0.02 x10^3/uL (0-0.1); BASOPHILS % (AUTO) 0 % (0-1); EOSINOPHILS % (AUTO) 0 % (1-7); LYMPHOCYTES # (AUTO) 0.58 x10^3/uL (1-3.4); LYMPHOCYTES % (AUTO) 9 % (22-44); MD NO; MEAN CORPUSCULAR HGB CONC 33.1 g/dL (33.2-36.2); MEAN CORPUSCULAR VOLUME 78.6 fL (81-97); MEAN PLATELET VOLUME 5.9 fL (7.4-10.4); MONOCYTES # (AUTO) 0.74 x10^3/uL (0.2-0.8); MONOCYTES % (AUTO) 11 % (2-9); NEUTROPHILS # (AUTO) 5.35 x10^3/uL (1.8-6.8); NEUTROPHILS % (AUTO) 80 % (42-75); PLATELET COUNT 314 x10^3/uL (130-400); RED BLOOD COUNT 4.15 x10^6/uL (4.38-5.82); RED CELL DISTRIBUTION WIDTH 15.3 % (9.4-14.8)
[2020-05-15 06:59] LABS: ANION GAP 5 mmol/L (5-15); CALCIUM 9.1 mg/dL (8.5-10.1); CHLORIDE 105 mmol/L (98-107); CREATININE 0.51 mg/dL (0.7-1.3)
[2020-05-15 07:43] VITALS: BP 144/86
[2020-05-15] MEDS: INSULIN REGULAR 100 UNITS/ML, 3ML VIAL SQ-INSULIN SCH (08:17)
[2020-05-15] MEDS: DEXAMETHASONE 4 MG TABLET PO SCH ×2 (08:18→12:56)
[2020-05-15] MEDS: LACTOBACILLUS CHEW TABLET PO SCH (08:18)
[2020-05-15] MEDS: APIXABAN 5 MG TABLET PO SCH (08:18)
[2020-05-15] MEDS: POLYETHYLENE GLYCOL 17 GM PACKET PO SCH (08:19)
[2020-05-15] MEDS: GABAPENTIN 300 MG CAPSULE PO SCH (08:19)
[2020-05-15] MEDS: ACETAMINOPHEN 500 MG TABLET PO SCH (08:20)
[2020-05-15] MEDS: FLUOXETINE HCL 20 MG CAPSULE PO SCH (08:20)
[2020-05-15] MEDS: FAMOTIDINE 20 MG TABLET PO SCH (08:20)
[2020-05-15] MEDS: MIDODRINE 5 MG TABLET PO SCH (08:20)
[2020-05-15] MEDS: BISACODYL 10 MG SUPP PR SCH (08:22)
[2020-05-15] MEDS: SENNA/DOCUSATE TABLET PO SCH (08:22)
[2020-05-15] MEDS: SENNOSIDES 8.6 MG TABLET PO SCH (08:22)
[2020-05-15] MEDS ORDERED: INSU100V5 SQ-INSULIN (11:15)
[2020-05-15] MEDS ORDERED: SENN-193 PO (11:15)
[2020-05-15] MEDS ORDERED: INSU100I13 SQ-INSULIN (11:15)
[2020-05-15] MEDS ORDERED: DEXA4TAB66 PO (11:15)
[2020-05-15] MEDS ORDERED: INSULIN GLARGINE 100 UNITS/ML, PEN SQ-INSULIN SCH ×2 (11:30→21:00)
== END 2020-05-15 13:16 | disposition home health service (06) | DRG 543 ==
LOC: 4NW 20:46
PROVIDERS: ADMIT Internal Medicine; ATTEND Internal Medicine
PROC: 0T9B30Z Drainage of Bladder with Drainage Device, Percutaneous Approach (ICD-10-PCS; principal; 2020-05-11)
DX: C79.51 Secondary malignant neoplasm of bone (principal); C64.9 Malignant neoplasm of unspecified kidney, except renal pelvis; C78.00 Secondary malignant neoplasm of unspecified lung; G81.90 Hemiplegia, unspecified affecting unspecified side; G82.20 Paraplegia, unspecified; G95.20 Unspecified cord compression; M48.54XA Collapsed vertebra, not elsewhere classified, thoracic region, initial encounter for fracture; M48.56XA Collapsed vertebra, not elsewhere classified, lumbar region, initial encounter for fracture; N39.0 Urinary tract infection, site not specified; D64.9 Anemia, unspecified; E03.9 Hypothyroidism, unspecified; E11.9 Type 2 diabetes mellitus without complications; E83.52 Hypercalcemia; E86.0 Dehydration; K59.00 Constipation, unspecified; B95.61 Methicillin susceptible Staphylococcus aureus infection as the cause of diseases classified elsewhere; G62.9 Polyneuropathy, unspecified; M48.00 Spinal stenosis, site unspecified; Z79.01 Long term (current) use of anticoagulants; Z79.4 Long term (current) use of insulin; Z79.891 Long term (current) use of opiate analgesic; Z83.3 Family history of diabetes mellitus; Z85.528 Personal history of other malignant neoplasm of kidney; Z86.19 Personal history of other infectious and parasitic diseases; Z86.718 Personal history of other venous thrombosis and embolism; Z92.3 Personal history of irradiation; Z74.01 Bed confinement status; Z88.8 Allergy status to other drugs, medicaments and biological substances; Z91.041 Radiographic dye allergy status; Z79.84 Long term (current) use of oral hypoglycemic drugs; Z79.899 Other long term (current) drug therapy; Z98.1 Arthrodesis status
CPT/HCPCS: 36415; 70553; 72157; 72158; 78306; 80048; 80053; 81001; 82962; 83735; 84100; 85025; 87086; G0378; J0696; J1815; Q0162; A9503; A9575; J0780; J2430; J7030; J7040

== ENCOUNTER 2020-05-26 01:33 | Inpatient (IN) | payer BC ==
[~2020-05-26] VITALS: Ht 182.9 cm; Wt 102.0 kg
[~2020-05-26 01:33] MED LIST changes: +ACET325C6 PO; +APIX5TAB PO; +CABOMETYX; +CINN500C2 PO; +DEXA4TAB66 PO; +FAMO10TA77 PO; +GABA600T7 PO; +IBUP-1221 PO; +INSU100V5 SQ-INSULIN; +INSU100V8 SQ; +LACT1TAB13 PO; +MIDO5TAB4 PO; +MORP15TA PO; +MORP30TA81 PO; +NALO4SPR NS; +SENN-193 PO; +TIZA4CAP PO; +TRAZ-96 PO; +TURM500C4 PO; +UBIQ75CA PO; +[UNRECOGNIZED DRUG - OTHER]
[2020-05-26 03:50] VITALS: BP 111/70
[2020-05-26] MEDS ORDERED: ONDANSETRON ODT 4 MG PO PRN (04:00)
[2020-05-26] MEDS ORDERED: PLEASE ENTER HEIGHT AND WEIGHT MC SCH (04:00)
[2020-05-26] MEDS ORDERED: LORazepam 2 MG/ML, 1ML IVPush PRN (04:00)
[2020-05-26] MEDS ORDERED: BISACODYL 10 MG SUPP PR PRN (04:00)
[2020-05-26] MEDS ORDERED: PROMETHAZINE 25 MG/ML, 1ML IM PRN (04:00)
[2020-05-26] MEDS ORDERED: POLYETHYLENE GLYCOL 17 GM PACKET PO PRN (04:00)
[2020-05-26] MEDS ORDERED: METOCLOPRAMIDE 5 MG/ML, 2ML IVPush PRN (04:00)
[2020-05-26] MEDS: MOVIPREP POWDER 1 PREP KIT PO ONE ×2 (04:00→06:45)
[2020-05-26] MEDS ORDERED: TRAZODONE 50MG TABLET PO PRN (04:00)
[2020-05-26] MEDS ORDERED: METHYLNALTREXONE 12 MG/0.6 ML SYR SQ ONE (04:00)
[2020-05-26] MEDS ORDERED: GOLYTELY 4,000ML ORAL.SOL PO ONE (04:00)
[2020-05-26] MEDS: SODIUM CHLORIDE 0.9% 1,000 ML IV SCH ×2 (04:20→17:25)
[2020-05-26] MEDS: HYDROmorphone 2 MG/ML, 1ML IV PRN ×6 (04:21→21:30)
[2020-05-26] MEDS: ONDANSETRON 2MG/ML, 2ML IVPush PRN ×2 (04:50→13:11)
[2020-05-26] MEDS: INSULIN REGULAR 100 UNITS/ML, 3ML VIAL SQ-INSULIN SCH ×4 (07:00→21:00)
[2020-05-26 07:25] VITALS: BP 112/74
[2020-05-26] MEDS: LACTULOSE 10 GM/15 ML UDC PO SCH ×2 (08:31→21:39)
[2020-05-26] MEDS: DEXAMETHASONE 4 MG TABLET PO SCH ×3 (08:32→17:25)
[2020-05-26] MEDS: FLUOXETINE HCL 20 MG CAPSULE PO SCH (08:32)
[2020-05-26] MEDS: APIXABAN 5 MG TABLET PO SCH ×2 (08:32→21:37)
[2020-05-26] MEDS: MIDODRINE 5 MG TABLET PO SCH ×2 (08:32→21:00)
[2020-05-26] MEDS: SENNA/DOCUSATE TABLET PO SCH (08:32)
[2020-05-26] MEDS: FAMOTIDINE 10 MG TAB PO SCH ×2 (08:35→21:39)
[2020-05-26] MEDS: INSULIN GLARGINE 100 UNITS/ML, PEN SQ-INSULIN SCH ×2 (10:09→21:45)
[2020-05-26 13:09] VITALS: BP 114/72
[2020-05-26 18:40] VITALS: BP 110/75
[2020-05-27 01:36] VITALS: BP 104/66
[2020-05-27] MEDS: HYDROmorphone 2 MG/ML, 1ML IV PRN ×6 (04:10→20:09)
[2020-05-27 05:22] LABS: CREATININE 0.47 mg/dL (0.7-1.3)
[2020-05-27] MEDS: INSULIN REGULAR 100 UNITS/ML, 3ML VIAL SQ-INSULIN SCH ×4 (07:00→21:00)
[2020-05-27 07:38] VITALS: BP 114/70
[2020-05-27] MEDS: SENNA/DOCUSATE TABLET PO SCH (07:53)
[2020-05-27] MEDS: LACTULOSE 10 GM/15 ML UDC PO SCH ×2 (07:53→21:52)
[2020-05-27] MEDS: MIDODRINE 5 MG TABLET PO SCH ×2 (07:53→21:00)
[2020-05-27] MEDS: FAMOTIDINE 10 MG TAB PO SCH ×2 (07:54→21:52)
[2020-05-27] MEDS: DEXAMETHASONE 4 MG TABLET PO SCH ×3 (07:55→16:26)
[2020-05-27] MEDS: FLUOXETINE HCL 20 MG CAPSULE PO SCH (07:55)
[2020-05-27] MEDS: APIXABAN 5 MG TABLET PO SCH ×2 (07:56→21:52)
[2020-05-27] MEDS: INSULIN GLARGINE 100 UNITS/ML, PEN SQ-INSULIN SCH ×2 (08:11→21:51)
[2020-05-27 12:44] VITALS: BP 116/68
[2020-05-27 19:11] VITALS: BP 111/69
[2020-05-27] MEDS ORDERED: HYDROmorphone 1 MG/ML, 1ML INJ ONE (20:06)
[2020-05-27] MEDS: morphine SULFATE 15 MG TAB.IR PO SCH (23:28)
[2020-05-28 02:17] VITALS: BP 116/67
[2020-05-28] MEDS ORDERED: HYDROmorphone 1 MG/ML, 1ML INJ ONE (02:34)
[2020-05-28] MEDS: HYDROmorphone 2 MG/ML, 1ML IV PRN ×3 (02:38→18:45)
[2020-05-28] MEDS: INSULIN REGULAR 100 UNITS/ML, 3ML VIAL SQ-INSULIN SCH ×4 (07:00→21:44)
[2020-05-28 07:11] VITALS: BP 129/72
[2020-05-28] MEDS: morphine SULFATE 15 MG TAB.IR PO SCH ×4 (07:37→21:24)
[2020-05-28] MEDS: DEXAMETHASONE 4 MG TABLET PO SCH ×3 (07:39→16:15)
[2020-05-28] MEDS: FAMOTIDINE 10 MG TAB PO SCH ×2 (07:39→21:23)
[2020-05-28] MEDS: SENNA/DOCUSATE TABLET PO SCH (07:40)
[2020-05-28] MEDS: MIDODRINE 5 MG TABLET PO SCH ×2 (07:41→21:22)
[2020-05-28] MEDS: FLUOXETINE HCL 20 MG CAPSULE PO SCH (07:41)
[2020-05-28] MEDS: LACTULOSE 10 GM/15 ML UDC PO SCH ×2 (07:42→21:22)
[2020-05-28] MEDS: APIXABAN 5 MG TABLET PO SCH ×2 (07:42→21:22)
[2020-05-28] MEDS: INSULIN GLARGINE 100 UNITS/ML, PEN SQ-INSULIN SCH ×2 (07:46→21:43)
[2020-05-28] MEDS ORDERED: METHYLNALTREXONE 12 MG/0.6 ML SYR SQ SCH (09:30)
[2020-05-28 13:53] VITALS: BP 126/71
[2020-05-28 20:46] VITALS: BP 130/74
[2020-05-29 00:44] VITALS: BP 119/73
[2020-05-29] MEDS: HYDROmorphone 2 MG/ML, 1ML IV PRN ×6 (01:13→16:12)
[2020-05-29] MEDS: morphine SULFATE 15 MG TAB.IR PO SCH ×3 (06:40→16:13)
[2020-05-29 07:19] VITALS: BP 130/73
[2020-05-29] MEDS: INSULIN REGULAR 100 UNITS/ML, 3ML VIAL SQ-INSULIN SCH ×3 (07:47→16:08)
[2020-05-29] MEDS: MIDODRINE 5 MG TABLET PO SCH (08:58)
[2020-05-29] MEDS: APIXABAN 5 MG TABLET PO SCH (09:10)
[2020-05-29] MEDS: FLUOXETINE HCL 20 MG CAPSULE PO SCH (09:11)
[2020-05-29] MEDS: DEXAMETHASONE 4 MG TABLET PO SCH ×2 (09:11→11:58)
[2020-05-29] MEDS: FAMOTIDINE 10 MG TAB PO SCH (09:11)
[2020-05-29] MEDS: SENNA/DOCUSATE TABLET PO SCH (09:11)
[2020-05-29] MEDS: LACTULOSE 10 GM/15 ML UDC PO SCH (09:11)
[2020-05-29] MEDS: INSULIN GLARGINE 100 UNITS/ML, PEN SQ-INSULIN SCH (09:16)
[2020-05-29 14:08] VITALS: BP 121/70
== END 2020-05-29 17:25 | disposition home health service (06) | DRG 948 ==
LOC: INTOOBSV 02:56 → 4NW 02:56 → OBSVTOIN 15:35
PROVIDERS: ADMIT Family Medicine; ATTEND Family Medicine
DX: G89.3 Neoplasm related pain (acute) (chronic) (principal); C64.9 Malignant neoplasm of unspecified kidney, except renal pelvis; E87.1 Hypo-osmolality and hyponatremia; G82.20 Paraplegia, unspecified; E11.9 Type 2 diabetes mellitus without complications; K59.00 Constipation, unspecified; Z51.5 Encounter for palliative care; Z85.528 Personal history of other malignant neoplasm of kidney; M48.04 Spinal stenosis, thoracic region; Z66 Do not resuscitate
CPT/HCPCS: 36415; 82565; 82962; G0378; J1170; J1815; J2405; J2060; J7030